=== PATIENT | male | born 1945 | race Caucasian/White ===

== ENCOUNTER 2017-11-14 19:42 | Inpatient (IN) | payer OTHER ==
[~2017-11-14] VITALS: Ht 152.4 cm; Wt 87.5 kg
[~2017-11-14 19:42] MED LIST: ACETAMINOPHEN325 M1 PO; ADULT LOW DOSE81 MG PO; ASPIRIN EC325 M1 PO; ASPIRIN EC325 MG PO; ASPIRIN325 PO; ASPIRIN81 M2 PO; CARVEDILOL3.125 MG PO; CARVEDILOL6.25 MG PO; COREG3.125 MG PO; COZAAR100 MG PO; CYCLOBENZAPRINE10 MG PO; DIOVAN160 MG PO; DYAZIDE 37.5-21 EACH PO; EFFIENT10 MG PO; FLOMAX0.4 MG PO; GLUCOSAMINE-CH1 EA37 PO; GLUCOSAMINE1000 MG PO; LOSARTAN POTAS100 MG PO; MAXZIDE-25 MG1 EACH; MAXZIDE-25 MG1 EACH PO; NITROGLYCERIN0.4 MG SUBLING; NITROQUICK0.4 MG SUBLING; NITROSTAT0.4 MG SUBLING; OMEPRAZOLE 20 M20 M1 PO; PLAVIX 75 MG TA75 M1 PO; PLAVIX 75 MG TA75 MG PO; PROSCAR 5MG TABL5 MG PO; SIMVASTATIN20 MG PO; TAMSULOSIN HCL0.4 M1 PO; TRAMADOL 50 MG50 MG PO; TRIAMTERENE/HCT1 CA1 PO; TRIPLE FLEX CA1 EACH PO; VITAMIN B-12500 MCG PO; ZOCOR40 MG PO; ZOCOR80 MG PO
[2017-11-14] MEDS ORDERED: ASPIRIN325 PO (20:04)
[2017-11-14 20:29] LABS: ABSOLUTE BASOPHILS 0.1 thou/uL (0.0-0.2); ABSOLUTE EOSINOPHILS 0.3 thou/uL (0.0-0.7); ABSOLUTE LYMPHOCYTES 1.4 thou/uL (0.8-5.3); ABSOLUTE MONOCYTES 0.9 thou/uL (0.0-1.2); ABSOLUTE NEUTROPHILS 4.6 thou/uL (1.6-8.1); BASOPHILS 1.4 %; EOSINOPHILS 4.7 %; HEMATOCRIT 37.4 % (42.0-52.0); HEMOGLOBIN 12.8 gm/dL (14.0-18.0); LYMPHOCYTES 19.7 %; MCH 32.8 pg (26.0-34.0); MCHC 34.2 g/dL (28.0-37.0); MONOCYTES 11.9 %; NUCLEATED RBCS 0 /100WBC; PLATELET COUNT* 144 thou/uL (150-400); POLYS 62.3 %; RDW-CV 13.8 % (10.5-14.5); WBC 7.4 thou/uL (4.0-11.0)
[2017-11-14 20:37] LABS: ANION GAP 7 mmol/L (7-16); BUN 23 mg/dL (7-18); CALCIUM 8.4 mg/dL (8.5-10.1); CHLORIDE 104 mmol/L (98-107); CO2 28 mmol/L (21-32); CREATININE 1.4 mg/dL (0.6-1.3); GLUCOSE 156 mg/dL (70-99); POTASSIUM 3.7 mmol/L (3.5-5.1); SODIUM 139 mmol/L (136-145)
[2017-11-14 20:39] LABS: INR 1.1; PROTIME 10.6 Seconds (9.20-11.50)
[2017-11-14 20:48] LABS: ALBUMIN 3.2 g/dL (3.4-5.0); ALKALINE PHOSPHATASE 104 U/L (46-116); LIPASE 92 U/L (73-393); NT-PRO BRAIN NAT PEPTIDE 61 pg/mL (<300); SGOT 19 U/L (15-37); SGPT 21 U/L (30-65); TOTAL BILIRUBIN 0.2 mg/dL (<0.1-1.0); TOTAL PROTEIN 6.4 g/dL (6.4-8.2); TROPONIN-I LEVEL <0.06 ng/mL (<0.06)
[2017-11-14 23:10] VITALS: BP 100/61
[2017-11-14 23:24] VITALS: BP 114/65
[2017-11-15] VITALS (16 sets, daily range): BP systolic 82–128; BP diastolic 45–73
--- NOTE | 2017-11-15 00:15 | NUR ---
ASSUMED CARE OF PT FROM THE ER AT 2315. PT IS ALERT AND ORIENTED. VSS. PT REPORTS SOME SHARP PAIN IN HIS CHEST. PT RATES AT A 2. PT DENIES THE NEED FOR PAIN MEDICINE. PT IS IN SINUS RYTHM ON THE TELEMETRY. PT IS CURRENTLY NPO FOR CARDIOLOGY. PT IS IN SINUS BRADYCARDIA. PT IS RESTING COMFORTABLY IN BED. RESPIRATIONS ARE EVEN AND NONLABORED. WILL CONTINUE TO MONITOR PT.
[2017-11-15 05:09] LABS: HEMATOCRIT 34.8 % (42.0-52.0); HEMOGLOBIN 11.9 gm/dL (14.0-18.0); MCH 33.1 pg (26.0-34.0); MCHC 34.3 g/dL (28.0-37.0); MCV 96.6 fL (80.0-100.0); MPV 9.6 fl. (7.2-11.1); RBC 3.6 mil/uL (4.50-6.00); RDW-CV 13.7 % (10.5-14.5); WBC 6.8 thou/uL (4.0-11.0)
[2017-11-15 05:27] LABS: ALBUMIN 2.7 g/dL (3.4-5.0); CALCIUM 7.8 mg/dL (8.5-10.1); CREATININE 1.2 mg/dL (0.6-1.3); POTASSIUM 3.6 mmol/L (3.5-5.1); TOTAL BILIRUBIN 0.2 mg/dL (<0.1-1.0); TOTAL PROTEIN 5.2 g/dL (6.4-8.2)
--- NOTE | 2017-11-15 08:36 | NUR ---
ASSUMED PT. CARE AND RECEIVED REPORT AT 0730. PT A/OX4, VSS, MONITOR ON TRACING SB. PT. REPORTS CP 5/10, WORSE WITH ACTIVITY. FULL ASSESSMENT COMPLETED REFER TO CHARTING. PT. UP IN CHAIR, AT BEDSIDE. NPO FOR CARDIOLOGY. WILL CONTINUE WITH PLAN OF CARE.
--- NOTE | 2017-11-15 12:30 | NUR ---
PT. CONTINUES TO COMPLAIN OF CP ON/OFF THROUGH OUT THE MORNING. EKG OBTAINED WITH NO NEW FINDINGS. DISCUSSED WITH TELMA WALKER CV, NEW ORDERS OBTAINED TO DO PO NITRO AND 1/[address] GALLEGOS MADE AWARE AND INTO SEE PT. PLAN FOR CARDIAC CATH MADE. IVF'S STARTED AT 125ML/HR. PER ORDERS. PT. STATED HE FELT "WEIRD" WITH AFTER NITRO AND NITRO PASTE PLACE, PASTE REMOVED. PT. BECAME TEARFUL AND VERY ANXIOUS ABOUT PROCEDURE. ONETIME ORDER FOR IV ATIVAN RECEIVED. PT. AT BEDSIDE THROUGH OUT.
--- NOTE | 2017-11-15 14:44 | NUR ---
PT. RETURNED FROM CARDIAC CATH. RIGHT GROIN SOFT WITH C/D/I DRESSING. PT. REMAINS SLEEPY FROM ATIVAN. BP SOFT AT 90'S/60'S CURRENTLY. PT. INSTRUCTED ON IMMOBILIZATION. WILL CONTINUE TO MONITOR.
--- NOTE | 2017-11-15 18:55 | NUR ---
PT. UP POST CATH, TOLERATING WELL. NO S/S OF BLEEDING NOTED DURING RECOVERY. BP UP TO 120'S/60'S. PT. DENIES CURRENT CP. PT. AT BEDSIDE. HOURLY ROUNDING COMPLETED THROUGH OUT THE DAY FOR PT. SAFETY.
[2017-11-16] VITALS: BP 121/56
--- NOTE | 2017-11-16 02:26 | NUR ---
ASSUMED CARE OF PT AT 1900. PT IS ALERT AND ORIENTED. VSS. PERRLA. NO COMPLAINTS OF PAIN. NO SIGNS OR SYMPTOMS OF BLEEDING IN CATH SITE. PT IS IN SINUS RYHTM ON THE TELEMETRY. PT IS RESTING COMFORTABLY IN BED. RESPIRATIONS ARE EVEN AND NONLABORED. WILL CONTINUE TO MONITOR PT.
[2017-11-16 04:00] VITALS: BP 112/55
[2017-11-16 04:55] LABS: HEMATOCRIT 37.2 % (42.0-52.0); HEMOGLOBIN 12.6 gm/dL (14.0-18.0); MCH 32.7 pg (26.0-34.0); MCHC 33.8 g/dL (28.0-37.0); MCV 96.8 fL (80.0-100.0); MPV 9.5 fl. (7.2-11.1); RBC 3.84 mil/uL (4.50-6.00); RDW-CV 13.8 % (10.5-14.5); WBC 8.1 thou/uL (4.0-11.0)
[2017-11-16 05:15] LABS: ALBUMIN 2.7 g/dL (3.4-5.0); ALKALINE PHOSPHATASE 70 U/L (46-116); ANION GAP 10 mmol/L (7-16); BUN 17 mg/dL (7-18); CALCIUM 8.6 mg/dL (8.5-10.1); CHLORIDE 105 mmol/L (98-107); CHOLESTEROL 130 mg/dL (<200); CK-MB MASS 1.7 ng/mL (<0.5-3.6); CO2 25 mmol/L (21-32); CREATININE 1.1 mg/dL (0.6-1.3); GLUCOSE 116 mg/dL (70-99); HDL CHOLESTEROL 49 mg/dL (>40); LDL CHOLESTEROL 68 mg/dL (<100); POTASSIUM 3.5 mmol/L (3.5-5.1); SGOT 18 U/L (15-37); SGPT 14 U/L (30-65); SODIUM 140 mmol/L (136-145); TC:HDL 2.7 Ratio (Not establshd); TOTAL BILIRUBIN 0.5 mg/dL (<0.1-1.0); TOTAL PROTEIN 5.7 g/dL (6.4-8.2); TRIGLYCERIDE 67 mg/dL (<150); TROPONIN-I LEVEL 0.17 ng/mL (<0.06); VLDL 13 mg/dL (<40)
[2017-11-16 05:22] LABS: SERUM ASSESSMENT CLEAR
[2017-11-16 08:00] VITALS: BP 133/84
[2017-11-16 09:08] VITALS: BP 112/55
[2017-11-16] MEDS ORDERED: BRILINTA90 MG PO (09:08)
[2017-11-16] MEDS ORDERED: ASPIR 8181 MG PO (09:17)
--- NOTE | 2017-11-16 12:20 | NUR ---
ORDER RECEIVED TO DISCHARGE TRUNG HOME TO SELF CARE. MED REC, MEDICATION EDUCAITON, STROKE EDUCATION, AND NEED FOR FOLLOW UP CARE WITH CARDIOLOGY COVERED AND STATED UNDERSTOOD BY PATIENT. IV AND TELEMETRY PACK REMOVED. PAITNET EDUCATED ON GROIN SITE CARE AND LIMITATIONS ON LIFTING AND EXERTION. PATIENT DENIES PAIN AT TIME OF DISCHARGE. PATIENT CHOSE TO AMBULATE WITH PCT TO AWAITING CAR WITH PRESENT. DC TIME OF 11:35.
--- NOTE | 2017-11-17 08:29 | CARD ---
[address] [address] CARDIAC CATH REPORT Name: JIMMYCLARI Room: [address] IN [facility]#: [id number] Admission: 11/14/17 Attend Phys: Connor Josue MD Discharge: 11/16/17 Date of : 47 Report #: [id number] THIS REPORT FOR: //name// APPROVED REPORT Study performed: 11/15/2017 12:38:49 Patient Details Patient Status: In-Patient Room #: 203 The patient is a 72 year-old male Event Personnel Anuel Main Nurse Ldr, Lara Priest Office Services Representative, Miguelito Rodriguez (R) Monitor, Joe Deras Scrub Procedures Performed DEMARIO Place w/wo Plasty Single RCA Indication Dyspnea, Unstable angina Risk Factors Hypercholesterolemia, Coronary Artery DiseaseHypertension Previous Procedures/Diagnoses Previous PCI Procedure Narrative A 6fr Ultimum Sheath sheath was inserted into the Right Femoral Artery. Coronary angiography was performed using coronary diagnostic catheters. The right coronary system was accessed and visualized with a JR4 catheter. The left coronary system was accessed and visualized with a JL4 catheter. The left ventricle was accessed and visualized with a Angled Pigtail catheter. Closure device was deployed with a Fr MynxGrip 6/7F. The patient tolerated the procedure well and there were no complications associated with the procedure. Intraoperative Conscious Sedation No Sedation Given Fluoro Time: 9.8 minutes Dose: DAP 17474 cGycm2 1644 mGy Contrast Type and Amount: Visipaque 200 ml Coronary Angiography [address] [address] CARDIAC CATH REPORT Name: CLARI MARQUEZ Room: [address]#: [id number] Admission: 11/14/17 Attend Phys: Connor Josue MD Discharge: 11/16/17 Date of : 47 Report #: [id number] The patient's coronary anatomy is right dominant. Diagnostic Cath Left Main Large-caliber vessel, with no flow-limiting lesions. LAD There is a stent in the proximal/mid segment, widely patent. Just prior to the stent, there is mild diffuse disease. The mid and distal segments of the LAD have no flow-limiting lesions. Diagonal 1 Small-caliber vessel with a total occlusion at the ostium, filled via collateral circulation. Unchanged from prior procedures. Circumflex Patent vessel, supplies 2 obtuse marginal arteries. OM1 There is a stent in the proximal segment, patent with no flow-limiting lesions. OM2 There is a stent in the proximal segment, patent with no flow-limiting lesions. Right Coronary Dominant vessel with multiple overlapping stents in the proximal/mid segment of the RCA. Within the mid segment of the stented area, there is a focal, severe restenotic lesion, at least 90%. R PDA Patent vessel, no flow-limiting lesions. Left Ventriculography The left ventricle is normal in size with decreased contractility. The left ventricular ejection fraction is estimated to be 45%. Left ventricular wall motion abnormalities are present. Hypokinesis of the inferior segment. IVUS Anticoagulation was achieved with . Angiomax Intravascular Ultrasound was performed on the mid right coronary artery vessel. Fractional Flow [place] was performed on the 90 vessel. A 3 Guide Catheter was used to engage the 6F JR 4.0 ostium. A IG: Luge Wire 180 was used. IVUS Findings NC Trek RX 3.0 X 15 Hemodynamics The aortic pressure is 121/61 mmHg with a mean of 85 mmHg. The left ventricular pressure is 120/3 mmHg with a mean of mmHg. The left ventricular end diastolic pressure is 15 mmHg. PCI Technique Lesion Anticoagulation was achieved with Angiomax. [place] [address] CARDIAC CATH REPORT Name: CLARI MARQUEZ Room: [address]#: [id number] Admission: 11/14/17 Attend Phys: Connor Josue MD Discharge: 11/16/17 Date of : 47 Report #: [id number] with Angiomax IV 13.5 mlTicagrelor PO 180 mg. Percutaneous coronary intervention was performed on the mid right coronary arterymid right coronary artery. The lesion stenosis prior to intervention was 90% with DONAVAN 3 flow. A 6F JR 4.0 Guide Catheter was used to engage the ostium. A IG: Luge Wire 180 Interventional Guidewire was used to cross the lesion. BALLOON DILATION A Balloon catheter NC Trek RX 2.75X15 was inserted and inflated up to 18.00atm for 33seconds. Additional Inflation: 18.00atm for 19seconds. PCI Technique Lesion Anticoagulation was achieved with Angiomax. Patient was preloaded with Brillinta. Percutaneous coronary intervention was performed on the mid right coronary artery. The lesion stenosis prior to intervention was 90% with DONAVAN 3 flow. A 6F JR 4.0 Guide Catheter was used to engage the ostium. A IG: Luge Wire 180 Interventional Guidewire was used to cross the lesion. BALLOON DILATION A Balloon catheter NC Trek RX 3.0 X 15 was inserted and inflated up to 20.00atm for 30seconds. STENT DEPLOYMENT A drug-eluting stent Resolute RX 3X15 was inserted and inflated up to 14.00atm for 32seconds. POST STENT DEPLOYMENT BALLOON DILATION A Balloon catheter NC Trek RX 3.25 X 12 was inserted and inflated up to 20.00atm for 34seconds. Additional Inflation: 20.00atm for 27seconds. Final angiography reveals 10 % stenosis with DONAVAN 3 flow. Conclusion 1. Successful coronary angioplasty involving placement of a drug-eluting stent and high pressure dilatation with noncompliant balloons in the severe restenotic lesion in the RCA. 2. Patent stents in the [place] [address] CARDIAC CATH REPORT Name: CLARI MARQUEZ Room: [address] IN .R.#: [id number] Admission: 11/14/17 Attend Phys: Connor Josue MD Discharge: 11/16/17 Date of : 47 Report #: [id number] 3. Mild segmental LV dysfunction. 4. Recommend dual antiplatelet therapy. <ELECTRONICALLY SIGNED> By: Anuel Main MD 11/17/17828 8 8Anuel Main MD /INF
--- NOTE | 2017-11-17 11:29 | EKG ---
[place] [address] ELECTROCARDIOGRAM REPORT Name: CLARI MARQUEZ Room: [address] IN [facility]#: [id number] Admission: 11/14/17 Attend Phys: Connor Josue MD Discharge: 11/16/17 Date of : 47 Report #: [id number] THIS REPORT FOR: //name// [facility] ED Test Date: 2017-11-14 Test Time: 19:49:53 Pat Name: CLARI MARQUEZ Department: Room: Gender: Senior Controls Technician: MILY : 1945 Requested By: Carolina Blankenship Order Number: [id number] : Juan Carlos Finch Measurements Intervals [place] Rate: 58 P: 20 GA: 168 QRS: 20 QRSD: 97 T: 20 QT: 411 QTc: 404 Interpretive Statements Sinus rhythm Inferior infarct, old possible Compared to ECG 01/08/2017 08:03:22 No significant change Electronically Signed On 11-17-2017 11:29:34 CDT by Juan Carlos Finch [email or web address] <ELECTRONICALLY SIGNED> By: Juan Carlos Finch MD, [facility] 11/17/17 1129 48 48 Juan Carlos Finch MD, [facility] /EPI
--- NOTE | 2017-11-17 18:37 | EKG ---
[place] [address] ELECTROCARDIOGRAM REPORT Name: JIMMYCLARI Reynolds Room: [address] DIS IN M.R.#: [id number] Admission: 11/14/17 Attend Phys: Connor Josue MD Discharge: 11/16/17 Date of : 47 Report #: [id number] THIS REPORT FOR: //name// [facility] Test Date: 2017-11-15 Test Time: 11:40:25 Pat Name: CLARI MARQUEZ Department: Room: [address] Gender: M Clam Grower: : 1945 Requested By: Anuel Main Order Number: [id number] Reading MD: Juan Carlos Finch Measurements Intervals [place] Rate: 51 P: 14 WA: 170 QRS: 13 QRSD: 98 T: 5 QT: 432 QTc: 398 Interpretive Statements Sinus rhythm Inferior infarct, old Baseline wander in lead(s) V6 Compared to ECG 01/08/2017 08:03:22 Myocardial infarct finding now present Electronically Signed On 11-17-2017 18:36:52 CDT by Juan Carlos Finch [email or web address] <ELECTRONICALLY SIGNED> By: Juan Carlos Finch MD, [facility] 11/17/17 1836 1140 1140 Juan Carlos Finch MD, [facility] /EPI
--- NOTE | 2017-11-26 16:12 | CON ---
[address] [address] CONSULTATION Name: CLARI MARQUEZ Room: [address] IN M.R.#: [id number] Admission: 11/14/17 Attend Phys: Connor Josue MD Discharge: 11/16/17 Date of : 47 Report #: [id number] THIS REPORT FOR: //name// CC: Connor Josue [facility] physician/PCP CARDIOLOGY CONSULTATION HISTORY OF PRESENT ILLNESS: I was asked by Dr. Josue to see this 72-year-old white male in Cardiology consultation for evaluation and treatment of chest pain. This man has known coronary artery disease and has had multiple coronary stents. He had stents in his LAD in September of last year by Dr. Finch and then again in his right coronary in 12/2016. He had stents at in 2004 and 2007. He had an [place] in 11/2007. He began having chest pain yesterday at about 11:30 a.m. that came and went. It was mild and sort of twinges, he said at first and it progressed until it became more constant at 05:00 to 06:00 p.m. He says the pain is like his previous pain. It is in the left chest and there is a pressure sensation. He has pain radiating into his left arm and into his axilla and up into his neck. Pain is a 7-8 on a scale of 10. It has been almost constantly there since 07:00 p.m., but it waxes and wanes. Nitroglycerin seems to help it and he says it never completely goes away, but goes down to around a one, but then goes back to 7 or 8 on a scale of 10 when the nitro worn off. He has not had any morphine. He says this pain is very much like his previous coronary pain that he had before getting stents. He does have chronic dyspnea on exertion and some edema at times. He does not have orthopnea or PND. He is not known to have heart failure. His coronary risk factors include a past history of smoking. He quit in the 1960s. He does have hypercholesterolemia and high blood pressure. He has not had diabetes. He does have a family history of coronary heart disease in his siblings. He has not had renal disease. He does have mild carotid disease bilaterally. He has not had claudication or peripheral vascular disease or open or non-healing wounds. Additionally, he has had rotator cuff surgery, back surgery, knee surgery, carpal tunnel surgery as well as the stents. ALLERGIES: HE IS ALLERGIC TO LISINOPRIL. MEDICATIONS: His home medicines include aspirin 325 mg daily, Proscar 5 mg daily, losartan 50 mg daily, p.r.n. nitroglycerin, omeprazole 20 mg daily, simvastatin 80 mg daily, Flomax 0.4 mg daily and triamterene/hydrochlorothiazide 37.5/25 one tablet daily. He is also taking Plavix 75 mg daily. He was on Brilinta until July when he was switched to Plavix. 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 Otherwise, his review of systems is negative for some 40 complaints in 14 different system categories, including central nervous system, general, respiratory, cardiovascular, endocrine, gastrointestinal, genitourinary, [address] [address] CONSULTATION Name: CLARI MARQUEZ Room: [address] IN [facility]#: [id number] Admission: 11/14/17 Attend Phys: Connor Josue MD Discharge: 11/16/17 Date of : 47 Report #: [id number] hematologic, lymphatic, allergic, immunologic, psychiatric, musculoskeletal, skin, eyes, ears, nose, mouth and throat. Please see review of system form for details and negatives in review of systems. SOCIAL HISTORY: He is , retired. 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 He does not smoke, drink or use illegal drugs. FAMILY HISTORY: Remarkable for his sisters having bypass graft surgery and a brother had a heart attack. There has been no family history of sudden . PHYSICAL EXAMINATION: GENERAL: He presents as a well-developed, well-nourished white male in no acute distress. VITAL SIGNS: Pulse was 60 and regular, blood pressure is 114/65, respirations were 17 and regular and temperature is 97.8. HEENT: Her head is atraumatic. Eyes are clear. Mucous membranes are moist. NECK: Supple. There is no jugular venous distention or hepatojugular reflux. Thyroid is not enlarged. There is no adenopathy. SKIN: Warm and dry. LUNGS: Clear to auscultation and percussion. HEART: Examination of the heart reveals normal first and second heart sound. There is soft S4. There is no S3. There are no murmurs, rubs, thrills, heaves or gallops. PMI is nondisplaced. ABDOMEN: Soft, flat and nontender. No palpable masses, no organomegaly. EXTREMITIES: Examination of the extremities reveal no cyanosis, clubbing or edema. NEUROLOGIC: The patient mentates normally, talks normally and moves all extremities normally. LABORATORY DATA: His EKG when he was admitted showed sinus bradycardia. The heart rate was 58. There were small Q-waves in V1 and V2 and the computer read it probable anteroseptal infarct that was old. The computer also read of an old inferior infarct. There is a neuro deep Q-wave in 3 and a very small minimal Q-wave in aVF; I am not sure he can call that an inferior infarct. His EKG today demonstrated a heart rate of 51 and normal sinus rhythm. Again, there was very small narrow Q-wave in 3 with really a nub-in of a Q-wave in 2 as well as a nub-in in the VF. Again, the computer called an inferior infarct; however, I am not sure this represents a true inferior infarct. There was a small R-wave in V1 and a more prominent R-wave in V2. I do not think this man has had a prior septal infarct. Initial troponin was normal. Apparently, a subsequent troponin was not drawn; one has been ordered stat. IMPRESSION: 1. Chest pain that is very suspicious for unstable angina. 2. Coronary artery disease. 3. Status post [place] [address] CONSULTATION Name: MARQUEZCLARI Room: [address] IN .R.#: [id number] Admission: 11/14/17 Attend Phys: Connor Josue MD Discharge: 11/16/17 Date of : 47 Report #: [id number] 4. Hypercholesterolemia. 5. Essential hypertension. 6. Carotid stenosis. RECOMMENDATIONS: This man should have cardiac catheterization today and that will be done. Dr. Main is on his way now to the hospital to do the procedure. Thank you very much for asking me to see the patient. If you have any questions, please feel free to contact me. <ELECTRONICALLY SIGNED> By: Ale Saleem MD, FACC 11/26/17 1612 1239 [id number]. Tremaine Saleem MD, FACC /nt
== END 2017-11-16 11:27 | disposition home or self-care (01) | DRG 247 ==
LOC: M.ERS 19:42 → M.TBA-ER 22:40 → M.2W 22:51
PROVIDERS: Emergency Medicine; Internal Medicine Cardiovascular Disease; ADMIT Internal Medicine
DX: I25.110 Atherosclerotic heart disease of native coronary artery with unstable angina pectoris (principal); I50.32 Chronic diastolic (congestive) heart failure; N17.9 Acute kidney failure, unspecified; E44.1 Mild protein-calorie malnutrition; I10 Essential (primary) hypertension; E78.5 Hyperlipidemia, unspecified; I65.29 Occlusion and stenosis of unspecified carotid artery; E78.00 Pure hypercholesterolemia, unspecified; M19.90 Unspecified osteoarthritis, unspecified site; Z88.8 Allergy status to other drugs, medicaments and biological substances; Z95.5 Presence of coronary angioplasty implant and graft; I25.2 Old myocardial infarction; Z98.890 Other specified postprocedural states; Z79.82 Long term (current) use of aspirin; Z79.899 Other long term (current) drug therapy

== ENCOUNTER 2018-05-22 11:57 | Inpatient (IN) | payer OTHER ==
[2018-05-22] VITALS (12 sets, daily range): BP systolic 95–133; BP diastolic 31–78
[~2018-05-22] VITALS: Ht 165.1 cm; Wt 83.9 kg
[~2018-05-22 11:57] MED LIST changes: +ASPIR 8181 MG PO; +BRILINTA90 MG PO
[2018-05-22] MEDS ORDERED: EFFIENT10 MG PO (12:04)
[2018-05-22 12:21] LABS: ABSOLUTE BASOPHILS 0.1 thou/uL (0.0-0.2); ABSOLUTE EOSINOPHILS 0.3 thou/uL (0.0-0.7); ABSOLUTE LYMPHOCYTES 1.4 thou/uL (0.8-5.3); ABSOLUTE MONOCYTES 0.8 thou/uL (0.0-1.2); ABSOLUTE NEUTROPHILS 5.1 thou/uL (1.6-8.1); BASOPHILS 0.8 %; EOSINOPHILS 4.3 %; HEMOGLOBIN 13.4 gm/dL (14.0-18.0); LYMPHOCYTES 18.3 %; MCH 32.3 pg (26.0-34.0); MCHC 33.5 g/dL (28.0-37.0); MCV 96.3 fL (80.0-100.0); NUCLEATED RBCS 0 /100WBC; PLATELET COUNT* 169 thou/uL (150-400); POLYS 65.6 %; RBC 4.16 mil/uL (4.50-6.00); RDW-CV 14.4 % (10.5-14.5); WBC 7.7 thou/uL (4.0-11.0)
[2018-05-22 12:33] LABS: ANION GAP 8 mmol/L (7-16); BUN 19 mg/dL (7-18); CALCIUM 8.9 mg/dL (8.5-10.1); CHLORIDE 103 mmol/L (98-107); CO2 30 mmol/L (21-32); CREATININE 1.1 mg/dL (0.6-1.3); GLUCOSE 102 mg/dL (70-99); POTASSIUM 3.9 mmol/L (3.5-5.1); SODIUM 141 mmol/L (136-145)
[2018-05-22 12:51] LABS: APTT 29.4 Seconds (25.0-31.3); PROTIME 10.7 Seconds (9.20-11.50)
[2018-05-22 12:52] LABS: ALBUMIN 3.3 g/dL (3.4-5.0); ALKALINE PHOSPHATASE 99 U/L (46-116); CK-MB MASS 2.1 ng/mL (<0.5-3.6); LIPASE 83 U/L (73-393); NT-PRO BRAIN NAT PEPTIDE 157 pg/mL (<300); SGOT 19 U/L (15-37); SGPT 18 U/L (30-65); TOTAL BILIRUBIN 0.3 mg/dL (<0.1-1.0); TOTAL PROTEIN 7.4 g/dL (6.4-8.2); TROPONIN-I LEVEL <0.06 ng/mL (<0.06)
[2018-05-22] MEDS ORDERED: KEFLEX500 M1 PO (14:31)
[2018-05-23] VITALS (14 sets, daily range): BP systolic 92–139; BP diastolic 53–64
[2018-05-23 05:27] LABS: HEMATOCRIT 37.1 % (42.0-52.0); HEMOGLOBIN 12.8 gm/dL (14.0-18.0); MCH 33.1 pg (26.0-34.0); MCHC 34.4 g/dL (28.0-37.0); MCV 96.4 fL (80.0-100.0); MPV 9.6 fl. (7.2-11.1); RBC 3.85 mil/uL (4.50-6.00); WBC 6.5 thou/uL (4.0-11.0)
[2018-05-23 05:37] LABS: ALBUMIN 2.5 g/dL (3.4-5.0); ALKALINE PHOSPHATASE 78 U/L (46-116); ANION GAP 9 mmol/L (7-16); BUN 19 mg/dL (7-18); CHLORIDE 105 mmol/L (98-107); CO2 26 mmol/L (21-32); CREATININE 1.1 mg/dL (0.6-1.3); GLUCOSE 117 mg/dL (70-99); HDL CHOLESTEROL 47 mg/dL (>40); POTASSIUM 3.9 mmol/L (3.5-5.1); SGOT 13 U/L (15-37); SGPT 14 U/L (30-65); SODIUM 140 mmol/L (136-145); TOTAL BILIRUBIN 0.4 mg/dL (<0.1-1.0); TOTAL PROTEIN 5.3 g/dL (6.4-8.2); TRIGLYCERIDE 59 mg/dL (<150); TROPONIN-I LEVEL 0.12 ng/mL (<0.06); VLDL 12 mg/dL (<40)
[2018-05-23 06:06] LABS: CHOLESTEROL 109 mg/dL (<200); LDL CHOLESTEROL 51 mg/dL (<100); TC:HDL 2.3 Ratio (Not establshd)
[2018-05-23 06:08] LABS: SERUM ASSESSMENT Clear
--- NOTE | 2018-05-23 11:05 | CARD ---
[address] [address] CARDIAC CATH REPORT Name: JU MARQUEZIFFORD Rodolfo Room: [address] IN ..#: [id number] Admission: 05/22/18 Attend Phys: Juana Conner MD Discharge: Date of : 46 Report #: [id number] THIS REPORT FOR: //name// APPROVED REPORT Study performed: 05/22/2018 16:21:31 Patient Details The patient is a 73 year-old male Event Personnel Juan Carlos Finch Cadmium Burner, Randi Shepherd RN Financial Services Assistant, Birgit Tillman RN Financial Services Assistant, Alexandra Amado RTR Monitor, Miguelito Rodriguez (R) Scrub Procedures Performed Art Access - R femoral artery* Left Heart Cath w/or w/o Coronaries LHC DEMARIO Place w/wo Plasty Single LAD DEMARIO Revasc Chronic Ttl Occl Single RCA C9607 CTOREVSING Hemostasis w/ Angioseal Indication Unstable angina Risk Factors Hypercholesterolemia, Hypertension Previous Procedures/Diagnoses Previous PCI, Previous FL Admission/Lab Medications/Medications given during procedure Aspirin, Heparin Unfract. Procedure Narrative The patient was brought urgently to the Cardiac Catheterization Laboratory and was prepped and draped in a sterile manner. The right femoral was infiltrated with 2% Lidocaine subcutaneous anesthesia. A Navajo 6 FR sheath was inserted into the right femoral artery. Coronary angiography was performed using coronary diagnostic catheters. The right coronary system was accessed and visualized with a Diagnostic 6Fr JR4 catheter. The left coronary system was accessed and visualized with a Diagnostic 6Fr JL4 catheter. The left ventricle was accessed and visualized with a Diagnostic 6Fr straight pigtail catheter. Left ventricular/Aortic Valve gradient assessed via catheter pullback. Pre-demployment femoral [place]ogram [place] [address] CARDIAC CATH REPORT Name: CLARI MARQUEZ Rodolfo Room: [address]#: [id number] Admission: 05/22/18 Attend Phys: Juana Conner MD Discharge: Date of : 46 Report #: [id number] Closure device was deployed with a Fr Angioseal STS 6Fr. Hemostasis was obtained with manual pressure following sheath removal without any complications. The patient tolerated the procedure well and there were no complications associated with the procedure. There was no hematoma. Intraoperative Conscious Sedation Sedation start time: 1701 Case end Time: 1900 Fentanyl 75 mcg Versed 5 mg Fluoro Time: 49.0 minutes Dose: DAP [id number] cGycm2 126 mGy Contrast Type and Amount: Visipaque 650 ml Coronary Angiography The patient's coronary anatomy is right dominant. Diagnostic Cath Left Main 0% narrowing LAD 80% proximal stenosis with 30% mid vessel narrowing Circumflex 30% proximal narrowing with widely patent first marginal stent Right Coronary 100% chronic total occlusion of the proximal right coronary artery with faint ipzh-mt-lzocs collaterals filling the distal right coronary artery Left Ventriculography Left Ventriculography was not performed. Hemodynamics The aortic pressure is mmHg with a mean of 93 mmHg. The left ventricular pressure is 121/2 mmHg with a mean of mmHg. The left ventricular end diastolic pressure is 11 mmHg. There was no gradient across the aortic valve upon pullback. PCI Technique Lesion Anticoagulation was achieved with Heparin. Percutaneous coronary intervention was performed on the proximalmid right coronary artery total occlusion. The lesion stenosis prior to intervention was 100% with DONAVAN 0 flow. A 6F JR 4.0 Guide Catheter was used to engage the ostium. A I BMW 190cm Interventional Guidewire was used to cross the lesion[place] [address] CARDIAC CATH REPORT Name: CLARI MARQUEZ Rodolfo Room: [address]#: [id number] Admission: 05/22/18 Attend Phys: Juana Conner MD Discharge: Date of : 46 Report #: [id number] A Balloon catheter Mini Trek 0TW 1.2 X 12 was inserted and inflated up to 14.00atm for 6seconds. Additional Inflation: 14.00atm for 9seconds. Additional Inflation: 14.00atm for 8seconds. STENT DEPLOYMENT A drug-eluting stent Neel RX Stent 3.0X30mm was inserted and inflated up to 16:00atm for 6seconds. Additional Inflation: 18:00atm for 11seconds. Additional Inflation: 18:00atm for 10seconds. POST STENT DEPLOYMENT BALLOON DILATION A Balloon catheter NC Trek RX 3.25 X 12 was inserted and inflated up to 16.00atm for 10seconds. Additional Inflation: 16.00atm for 9seconds. Additional Inflation: 16.00atm for 9seconds. Final angiography reveals 10 % stenosis with DONAVAN 3 flow. COMMENTS I was able to traverse the chronic total occlusion of the proximal right coronary artery with a Fielder XT wire and a fine cross support catheter. I then was able to dilate the lesion with 1.5 x 12.0 2.0 x 12 and 3.0 x 12 trek balloons prior to placing sequential drug-eluting stents. BALLOON DILATION A Balloon catheter was inserted and inflated up to 10.00atm for 7seconds. Additional Inflation: 10.00atm for 4seconds. Additional Inflation: 10.00atm for 7seconds. Stent Deployment A drug-eluting stent [place] RX Stent 3.0X26mm was inserted and inflated up to 18:00atm for 15seconds. Additional Inflation: 20:00atm for 10seconds. PCI Technique Lesion Percutaneous coronary intervention was performed on the proximal right coronary artery. BALLOON DILATION A Balloon catheter Trek RX 3.0 X 12 was inserted and inflated up to 12.00atm for 8seconds. Additional Inflation: 14.00atm for 12seconds. Additional Inflation: 14.00atm for 7seconds. STENT DEPLOYMENT A drug-eluting stent [place] RX Stent 3.0X12mm was inserted and inflated up to 18:00atm for 20seconds. Additional Inflation: 20:00atm for 6seconds. Additional Inflation: 18:00atm for 7seconds. [address] [address] CARDIAC CATH REPORT Name: CLARI MARQUEZ Room: [address]#: [id number] Admission: 05/22/18 Attend Phys: Juana Conner MD Discharge: Date of : 46 Report #: [id number] PCI Technique Lesion Percutaneous coronary intervention was performed on the proximal right coronary artery. BALLOON DILATION A Balloon catheter NC Trek RX 3.0 X 12 was inserted and inflated up to 18.00atm for 15seconds. Additional Inflation: 18:00atm for 3seconds. Additional Inflation: 20:00atm for 5seconds. PCI Technique Lesion 4 Percutaneous Coronary Intervention was performed on the proximal left anterior descending artery segment. Percutaneous coronary intervention was performed on the proximal LAD. The lesion stenosis prior to intervention was 80% with DONAVAN 3 flow. A 6F XB LAD 3.5 Guide Catheter was used to engage the ostium. A BMW 190cm Interventional Guidewire was used to cross the lesion. Balloon Dilation A Balloon catheter NC Trek RX 3.0 X 12 was inserted and inflated up to 14.00atm for 7seconds. Stent Deployment A drug-eluting stent Neel RX Stent 3.0X15mm was inserted and inflated up to 14.00atm for 12seconds. Additional Inflation: 16.00atm for 9seconds. Additional Inflation: 17.00atm for 9seconds. Final angiography reveals 0 % stenosis with DONAVAN 3 flow. Conclusion #1 severe coronary artery disease characterized by following: A 80% proximal LAD stenosis B 30% proximal circumflex narrowing with widely patent first marginal stent C large dominant right coronary artery with 100% chronic total occlusion in the proximal portion with faint ydgo-ib-clzal collaterals filling the distal right coronary artery #2 normal left-sided hemodynamics study #3 successful percutaneous coronary intervention with recanalization of the chronic total occlusion of the proximal[place] [address] CARDIAC CATH REPORT Name: MARQUEZCLARI Room: [address] IN .R.#: [id number] Admission: 05/22/18 Attend Phys: Juana Conner MD Discharge: Date of : 46 Report #: [id number] artery with 3 drug-eluting stents deployed and 10% residual narrowing with DONAVAN-3 flow to the distal vessel following final stent deployment #4 successful percutaneous coronary intervention with deployment of drug-eluting stent at site of 80% proximal LAD stenosis with 0% residual narrowing and DONAVAN-3 flow to the distal vessel Recommendations Cardiac Risk Reduction Program Aggressive Medical Therapy Medications Administered Aspirin (any) Prasugrel Diagnostic Cath Approved by: Juan Carlos Finch MD Date/Time: 05/23/2018 11:02:56 <ELECTRONICALLY SIGNED> By: Juan Carlos Finch MD, FACC 05/23/18 1104 1104 1104Juan Carlos Finch MD, FACC /INF
--- NOTE | 2018-05-23 12:45 | CON ---
[address] [address] CONSULTATION Name: MARQUEZCLARI Room: [address] IN M.R.#: [id number] Admission: 05/22/18 Attend Phys: Juana Conner MD Discharge: Date of : 46 Report #: [id number] THIS REPORT FOR: //name// CC: [facility] physician/PCP Juan Carlos Conner MD DATE OF SERVICE: 05/22/2018 CARDIOLOGY CONSULTATION HISTORY OF PRESENT ILLNESS: patient's chart Dr. Conner our office. Thank you for allowing me to see this patient in cardiovascular assessment. HISTORY OF PRESENT ILLNESS: As you know, he is a very pleasant 73-year-old male with complex coronary artery disease, status post prior stenting of the LAD, circumflex and right coronary arteries. In October 2017, he presented with an acute coronary syndrome with in-stent thrombosis and mid right coronary artery and underwent stenting with deployment of a drug-eluting stent in the mid right coronary artery with good angiographic result. He had done well until the past approximately 2 weeks when he has noted increased shortness of breath with exertion. In the preceding 2 days, he has developed achy jaw pain with modest activity typical of his prior ischemic syndrome. This has come on with minimal activity and at times in last 2 days at rest. He has had no protracted bouts of pain. MEDICATIONS: He has been compliant with dual antiplatelet therapy in the form of aspirin 325 mg 2 tablets b.i.d. (self-modified) and Effient 10 mg daily. Additional cardiac medications include losartan 50 mg daily, Zetia, atorvastatin 80 mg at bedtime. Noncardiac medicines include Flomax 0.4 mg daily. PAST MEDICAL HISTORY: Remarkable for hypertension, hypercholesterolemia, prostatic hypertrophy and decreased auditory acuity. SOCIAL HISTORY: He is a nonsmoker. He is . FAMILY HISTORY: Negative for premature coronary artery disease. REVIEW OF SYSTEMS: Remarkable for the following: CARDIOVASCULAR: He notes recent chest and jaw discomfort with exertion as well as marked dyspnea on exertion. GENITOURINARY: [place] [address] CONSULTATION Name: JIMMYCLARI Room: [address]#: [id number] Admission: 05/22/18 Attend Phys: Juana Conner MD Discharge: Date of : 46 Report #: [id number] PHYSICAL EXAMINATION: GENERAL: Demonstrates a nondistressed middle-aged elderly male, in no distress. VITAL SIGNS: Blood pressure is 140/70, pulse rate is 72, respirations are 18 per minute. NECK: Jugular venous pressure is normal. CHEST: Clear. CARDIAC: Reveals normal first and second heart sounds with a question of S4 gallop, without rubs, clicks or murmurs. ABDOMEN: Soft. EXTREMITIES: Without edema with intact femoral, pedal and radial pulses. There are no deformity or arthritic changes. No petechiae or ecchymoses are noted. LABORATORY DATA: Reviewed and reveals a hemoglobin of 13.4, white blood cell count of 7700 and 169,000 platelets. Sodium 141, potassium 3.9, BUN 19, creatinine 1.1, glucose 102 mg percent. Troponin less than 0.06. NT-BNP 157, triglycerides 67, cholesterol 130, LDL 68, HDL 49. IMPRESSION: 1. Acute coronary syndrome with unstable angina. 2. Coronary artery disease, status post remote multivessel stenting with more recent stenting of the right coronary artery in October 2017. 3. Hyperlipidemia. 4. Hypertension. 5. Benign prostatic hypertrophy. 6. Decreased auditory acuity. RECOMMENDATIONS: Given the clinical scenario, which is most compatible with an acute coronary syndrome and specifically unstable angina, I would recommend urgent catheterization with strong consideration of anatomic intervention if dictated by the anatomic findings. In the interim, hydration has been commenced and we will plan to proceed on 05/22/2018 with the aforementioned catheterization. The procedure and risks have been discussed with the patient. <ELECTRONICALLY SIGNED> By: Juan Carlos Finch MD, FACC 05/23/18 1245 1611 [id number] Carlos Finch MD, FACC /nt
--- NOTE | 2018-05-23 12:45 | D ---
[address] [address] DISCHARGE SUMMARY Name: CLARI MARQUEZ Room: [address] IN M.R.#: [id number] Admission: 05/22/18 Attend Phys: Juana Conner MD Discharge: Date of : 46 Report #: [id number] THIS REPORT FOR: //name// CC: [facility] physician/PCP Juan Carlos Conner DATE OF SERVICE: 05/23/2018 FINAL DISCHARGE DIAGNOSES: 1. Unstable angina. 2. Coronary artery disease, status post multiple prior percutaneous coronary interventions. 3. Status post recanalization of chronic total occlusion of the right coronary artery on 05/22, with stenting of the proximal left anterior descending. 4. Hypertension. 5. Hyperlipidemia. 6. Benign prostatic hypertrophy. PROCEDURES: 05/22/2018 -- left heart catheterization, selective coronary arteriography and percutaneous coronary intervention with recanalization of a chronic total occlusion of the proximal right coronary artery with stenting of the proximal LAD. The patient is a very pleasant 73-year-old male with history of complex coronary artery disease, status post prior stenting of the LAD, circumflex and right coronary artery. He last presented in October of this year with an acute coronary syndrome and underwent stenting of the right coronary artery with an intraluminal thrombus noted preprocedurally. There was a good angiographic result. He was discharged to home in stable condition on dual antiplatelet therapy, which he has continued as well as a lipid lowering and antihypertensive therapy. For the 2-4 weeks prior to admission, he has noted marked dyspnea on exertion above and beyond that which he has experienced previously and for the several days prior to admission, he noted achy pain in his jaw, typical of his prior angina, associated with exertion, remitting with rest. Episodes have become more frequent and more severe. In that context, he called and sought admission to [facility]. He was admitted in the context of the acute coronary syndrome. He underwent cardiac catheterization, which revealed chronic total occlusion of the proximal right coronary artery with 80% proximal LAD stenosis. I have recanalized the right coronary artery utilizing a Fielder XT wire to penetrate the proximal cap and ultimately placing 3 drug-eluting stents from the mid back to proximal LAD, 3.0 x 30, 3.0 x 26 and 3.0 x 12 [place] [address] DISCHARGE SUMMARY Name: MARQUEZCLARI Room: [address] IN [facility]#: [id number] Admission: 05/22/18 Attend Phys: Juana Conner MD Discharge: Date of : 46 Report #: [id number] deployed, with 10% residual narrowing and DONAVAN 3 flow of the distal vessel. I then stented the proximal LAD with one 3.0 x 15 Integrity [place] drug-eluting stent deployed to 16 atmospheres with 0% residual narrowing. The patient did well post-procedurally. LABORATORY DATA: On 05/23 revealed a sodium of 140, potassium 3.9, BUN 19, creatinine 1.1. Troponin haylee inconsequentially to 0.12. Hemoglobin 12.8, white blood cell count 6500, with 142,000 platelets. The patient was discharged to home in stable condition on the following medications: Aspirin 81 mg daily. Keflex, which has been previously prescribed 500 mg daily. Finasteride 5 mg daily, losartan 50 mg daily, omeprazole 20 mg daily. Prasugrel or Effient 10 mg daily, 60 mg periprocedural dose given. Simvastatin 80 mg at bedtime, tamsulosin 0.4 mg daily, triamterene/hydrochlorothiazide 37.5/25 one tablet daily and p.r.n. sublingual nitroglycerin. I will plan to see him in the office in 6-8 weeks for followup. Thus, the patient is discharged to home in stable condition on the aforementioned medications with followup as iterated above. <ELECTRONICALLY SIGNED> By: Juan Carlos Finch MD, FACC 05/23/18 1245 1037 1118Joawais Finch MD, FACC /nt
--- NOTE | 2018-05-23 14:56 | EKG ---
[place] [address] ELECTROCARDIOGRAM REPORT Name: ANDREW MARQUEZHALEY Reynolds Room: [address] ADM IN .R.#: [id number] Admission: 05/22/18 Attend Phys: Juana Conner MD Discharge: Date of : 46 Report #: [id number] THIS REPORT FOR: //name// [facility] ED Test Date: 2018-05-22 Test Time: 12:03:56 Pat Name: CLARI MARQUEZ Department: Room: [facility] Gender: Surveyor Chain Helper: DOUGIE ROSADO : 1945 Requested By: Adam Matt Order Number: [id number] MD: Abhishek Holloway Measurements Intervals [place] Rate: 59 P: 41 [place]: 185 QRS: 30 QRSD: 97 T: 3 QT: 424 QTc: 420 Interpretive Statements Sinus rhythm Compared to ECG 11/15/2017 11:40:25 no change Electronically Signed On 05-23-2018 14:56:30 TOOLING SUPERVISOR by Abhishek Holloway [email or web address] <ELECTRONICALLY SIGNED> By: Abhishek Holloway MD, [facility] 05/23/18 1456 120 120 Abhishek Holloway MD, [facility] /EPI
--- NOTE | 2018-05-23 15:01 | EKG ---
[place] [address] ELECTROCARDIOGRAM REPORT Name: CLARI MARQUEZ Room: [address] ADM IN M.R.#: [id number] Admission: 05/22/18 Attend Phys: Juana Conner MD Discharge: Date of : 46 Report #: [id number] THIS REPORT FOR: //name// [facility] Test Date: 2018-05-22 Test Time: 20:12:33 Pat Name: CLARI MARQUEZ Department: Room: [address] Gender: M Paste Thinner: DEJAN : 1945 Requested By: Adam Matt Order Number: [id number] Reading MD: Abhishek Holloway Measurements Intervals [place] Rate: 60 P: 49 SD: 201 QRS: 22 QRSD: 95 T: -4 QT: 432 QTc: 432 Interpretive Statements Sinus rhythm Electronically Signed On 05-23-2018 15:01:34 EDUCATIONAL INTERPRETER by Abhishek Holloway [email or web address] <ELECTRONICALLY SIGNED> By: Abhishek Holloway MD, [facility] 05/23/18 1501 11 11 Abhishek Holloway MD, FACC /EPI
--- NOTE | 2018-05-23 15:05 | EKG ---
[place] [address] ELECTROCARDIOGRAM REPORT Name: JIMMYCLARI Reynolds Room: [address] ADM IN M.R.#: [id number] Admission: 05/22/18 Attend Phys: Juana Conner MD Discharge: Date of : 46 Report #: [id number] THIS REPORT FOR: //name// [facility] Test Date: 2018-05-23 Test Time: 08:04:06 Pat Name: CLARI MARQUEZ Department: Room: [address] Gender: M Fire Control Technician G: : 1945 Requested By: Juan Carlos Finch Order Number: [id number] Reading MD: Abhishek Holloway Measurements Intervals [place] Rate: 77 P: 51 [place]: 185 QRS: 21 QRSD: 93 T: -8 QT: 466 QTc: 528 Interpretive Statements Sinus rhythm Inferior infarct, old Prolonged QT interval Electronically Signed On 05-23-2018 15:04:56 REFERENCE LIBRARIAN by Abhishek Holloway [email or web address] <ELECTRONICALLY SIGNED> By: Abhishek Holloway MD, [facility] 05/23/18 1504 0804 08 Abhishek Holloway MD, FACC /EPI
== END 2018-05-23 16:40 | disposition home or self-care (01) | DRG 246 ==
LOC: M.ERS 11:57 → M.TBA-ER 13:03 → M.2W 13:03
PROVIDERS: Family Medicine; Internal Medicine; ADMIT Internal Medicine
PROC: 4A023N7 Measurement of Cardiac Sampling and Pressure, Left Heart, Percutaneous Approach (ICD-10-PCS; principal; 2018-05-22)
PROC: B211YZZ Fluoroscopy of Multiple Coronary Arteries using Other Contrast (ICD-10-PCS; principal; 2018-05-22)
PROC: 027137Z Dilation of Coronary Artery, Two Arteries with Four or More Drug-eluting Intraluminal Devices, Percutaneous Approach (ICD-10-PCS; principal; 2018-05-22)
DX: I25.110 Atherosclerotic heart disease of native coronary artery with unstable angina pectoris (principal); I24.9 Acute ischemic heart disease, unspecified; I25.10 Atherosclerotic heart disease of native coronary artery without angina pectoris; I50.9 Heart failure, unspecified; N40.0 Benign prostatic hyperplasia without lower urinary tract symptoms; E78.5 Hyperlipidemia, unspecified; N36.8 Other specified disorders of urethra; I11.0 Hypertensive heart disease with heart failure; E78.00 Pure hypercholesterolemia, unspecified; Z95.5 Presence of coronary angioplasty implant and graft; I25.2 Old myocardial infarction; Z88.8 Allergy status to other drugs, medicaments and biological substances; Z79.82 Long term (current) use of aspirin; Z79.899 Other long term (current) drug therapy; Z23 Encounter for immunization

== ENCOUNTER 2018-07-30 11:13 | Inpatient (IN) | payer OTHER ==
[~2018-07-30] VITALS: Ht 152.4 cm; Wt 85.7 kg
[~2018-07-30 11:13] MED LIST changes: +KEFLEX500 M1 PO
[2018-07-30 11:18] VITALS: BP 116/68
--- NOTE | 2018-07-30 11:24 | NUR ---
PT'S SPOUSE REPORTS THAT THE PATIENT TOOK TWO TABLETS OF 324 MG ASPIRIN THIS MORNING BEFORE ARRIVAL. PHYSICIAN NOTIFIED.
[2018-07-30 11:39] LABS: ABSOLUTE BASOPHILS 0.1 thou/uL (0.0-0.2); ABSOLUTE EOSINOPHILS 0.2 thou/uL (0.0-0.7); ABSOLUTE LYMPHOCYTES 1.1 thou/uL (0.8-5.3); ABSOLUTE MONOCYTES 0.6 thou/uL (0.0-1.2); BASOPHILS 1.2 %; EOSINOPHILS 3.2 %; HEMATOCRIT 43.5 % (42.0-52.0); HEMOGLOBIN 14.4 gm/dL (14.0-18.0); LYMPHOCYTES 15.9 %; MCH 30.6 pg (26.0-34.0); MCHC 33.2 g/dL (28.0-37.0); MCV 92.3 fL (80.0-100.0); MONOCYTES 8.9 %; MPV 8.9 fl. (7.2-11.1); NUCLEATED RBCS 0 /100WBC; PLATELET COUNT* 161 thou/uL (150-400); POLYS 70.8 %; RBC 4.71 mil/uL (4.50-6.00); RDW-CV 14.5 % (10.5-14.5); WBC 7.1 thou/uL (4.0-11.0)
[2018-07-30 11:50] LABS: APTT 28.5 Seconds (25.0-31.3); INR 1.1; PROTIME 11.1 Seconds (9.20-11.50)
[2018-07-30 12:06] LABS: ANION GAP 10 mmol/L (7-16); BUN 25 mg/dL (7-18); CALCIUM 8.9 mg/dL (8.5-10.1); CHLORIDE 103 mmol/L (98-107); CO2 25 mmol/L (21-32); CREATININE 1.3 mg/dL (0.6-1.3); GLUCOSE 107 mg/dL (70-99); POTASSIUM 3.7 mmol/L (3.5-5.1); SODIUM 138 mmol/L (136-145); TROPONIN-I LEVEL <0.06 ng/mL (<0.06)
[2018-07-30 12:12] LABS: ALBUMIN 3.5 g/dL (3.4-5.0); ALKALINE PHOSPHATASE 98 U/L (46-116); LIPASE 83 U/L (73-393); MAGNESIUM 1.9 mg/dL (1.8-2.4); NT-PRO BRAIN NAT PEPTIDE 72 pg/mL (<300); SGOT 28 U/L (15-37); SGPT 17 U/L (30-65); TOTAL BILIRUBIN 0.3 mg/dL (<0.1-1.0); TOTAL PROTEIN 7.3 g/dL (6.4-8.2)
[2018-07-30] MEDS ORDERED: VITAMIN B-12500 MCG PO (12:18)
[2018-07-30] MEDS ORDERED: METFORMIN HCL500 MG PO (12:20)
[2018-07-30] MEDS ORDERED: GLUCOSAMINE HC500 MG PO (12:35)
[2018-07-30] MEDS ORDERED: KEFLEX500 M1 PO (12:36)
[2018-07-30 14:45] VITALS: BP 115/60
[2018-07-30 15:12] VITALS: BP 103/81
--- NOTE | 2018-07-30 16:05 | NUR ---
RECIEVIED REPORT FROM ALE RN IN ER OF EXPECTED ADMISSION AT 1420- DX: CHEST PAIN- PT ARRIVED TO ROOM 214 VIA CART WITH SBA TO BED X- PHONOGRAPH MECHANIC PLACED ORDERED, TRACING SR- VS 97.4 20 103/81 56 100% ON RA- PT A&O X4- CONTINENT OF BOWEL AND BLADDER- SBA WITH TRANSFERS FOR SAFETY- LCTA, RESP EVEN AND UN-LABORED- ABD SOFT/ROUND/NON-TENDER, BS X4 QUADS- PT REPORTS TO HAVE HAD BM THIS AM- IV NOTED TO LEFT AC INTACT, HEPARIN BOLUS AND DRIP INITIATED PER ORDERED AT 1525 AND CURRENLTY INFUSSING AT 10ML/HR WITH APPT REDRAW SCHEDULED FOR 2124- SKIN C/D/I- BAND-AIDES NOTED TO LEFT HAND 3 FINGERS, PT REPORTS TO USE THEN FOR DRY SKIN- ADEQUITE EYE SIGHT WITH GLASSES NOTED- UPPER AND LOWER DENTURES NOTED IN PLACE WELL AURA HEARING AIDES- PT REPORTS PAIN TO AHVE SUBSIDED AT TIME OF ADMISSION- CALL LIGHT AND PERSONAL BELONGINGS WITH IN REACH- HOURLY ROUNDS IN PLACE R/T SAFETY/NEEDS- ALL NEEDS MET AT THIS TIME-WCTM
--- NOTE | 2018-07-30 16:23 | EKG ---
[place] [address] ELECTROCARDIOGRAM REPORT Name: JU MARQUEZDAR Reynolds Room: [address] ADM IN .R.#: [id number] Admission: 07/30/18 Attend Phys: Andrei Ren Discharge: Date of : 47 Report #: [id number] THIS REPORT FOR: //name// [facility] ED Test Date: 2018-07-30 Test Time: 11:17:34 Pat Name: CLARI MARQUEZ Department: Room: [facility] Gender: Water Service Supervisor: Jeanette RAINEY : 1945 Requested By: Moise Mitchell Order Number: [id number] MD: Abhishek Holloway Measurements Intervals [place] Rate: 59 P: 39 [place]: 189 QRS: 28 QRSD: 104 T: 42 QT: 412 QTc: 409 Interpretive Statements Sinus rhythm Compared to ECG 05/23/2018 08:04:06 Myocardial infarct finding no longer present Prolonged QT interval no longer present Electronically Signed On 07-30-2018 16:23:42 CLASSIFICATION COUNSELOR by Abhishek Holloway [email or web address] <ELECTRONICALLY SIGNED> By: Abhishek Holloway MD, [facility] 07/30/18 1623 1117 1117 Abhishek Holloway MD, [facility] /EPI
[2018-07-30 20:00] VITALS: BP 103/62
--- NOTE | 2018-07-30 20:00 | NUR ---
RECEIVED REPORT AND ASSUMED CARE OF PT, ASSESSMENT COMPLETED. VISITING WITH FAMILY. DENIES CP OR SOB. GAIT STEADY TO AND FROM BR. HEPARIN INFUSING PRE PROTOCOL. TELEMETRY ON SHOWING SR TO SB. DISCUSSED CARDIAC CATH IN AM. WILL CONT TO MONITOR AND ASSIST NEEDED.
[2018-07-31] VITALS (14 sets, daily range): BP systolic 83–122; BP diastolic 42–66
--- NOTE | 2018-07-31 06:45 | NUR ---
SLEPT WELL TONIGHT. DENIES CP. HELD NITRO PASTE DUE TO LOW BP. TELEMETRY CONT TO SHOW SR TO SB. NO CHANGE IN ASSESSMENT. HS GOALS OF REST AND SAFETY ACHIEVED. HOURLY ROUNDING OBSERVED.
--- NOTE | 2018-07-31 08:48 | CON ---
[address] [address] CONSULTATION Name: CLARI MARQUEZ Room: [address] IN M.R.#: [id number] Admission: 07/30/18 Attend Phys: Andrei Ren Discharge: Date of : 47 Report #: [id number] THIS REPORT FOR: //name// CC: Dr. Juan Finch MD [facility] Juan Groves DATE OF SERVICE: 07/30/2018 INDICATION: Unstable angina. HISTORY OF PRESENT ILLNESS: The patient is a very pleasant 73-year-old gentleman who is well known to our service. He has coronary artery disease with multiple interventions in the past. He has focal areas of stenting involving the LAD and circumflex. He has a long region of stented artery involving the proximal to distal right coronary artery. In May, region of chronic occlusion in the right coronary stent was recanalized and 3 drug-eluting stents placed. Since that time, the patient had been doing relatively well until approximately 9:30 this morning when he had recurrence of his typical angina with chest pressure radiating to the neck and left jaw. Since the onset of his discomfort, the pain has waxed and waned. His initial troponin is unremarkable. EKG shows no acute ST elevation. PAST MEDICAL HISTORY: 1. Coronary artery disease with multiple interventions as outlined above. 2. Hypertension. 3. Dyslipidemia. 4. BPH. 5. Urinary retention. SOCIAL HISTORY: The patient is . He is a nonsmoker. FAMILY HISTORY: Noncontributory. REVIEW OF SYSTEMS: As per HPI, otherwise unremarkable. PHYSICAL EXAMINATION: VITAL SIGNS: Stable. Blood pressure 116/68, pulse is 67 and regular. GENERAL: This is a pleasant gentleman, who is in no distress. Mood and affect appropriate. HEENT: The patient is wearing glasses. Extraocular muscles intact. Mucous membranes moist. NECK: Shows no jugular venous distention. There are no carotid bruits. CHEST: [place] [address] CONSULTATION Name: MARQUEZCLARI Room: [address] IN [facility]#: [id number] Admission: 07/30/18 Attend Phys: Andrei Ren Discharge: Date of : 46 Report #: [id number] CARDIOVASCULAR: Reveals regular rhythm, normal S1 and S2. I do not appreciate gallop or murmur. ABDOMEN: Reveals normal bowel sounds. The abdomen is soft and nontender. EXTREMITIES: Shows no edema. SKIN: Warm and dry. LABORATORY DATA: Reviewed. Initial troponin is less than 0.06. NT-proBNP is 72. Chest x-ray shows no acute cardiopulmonary abnormality. IMPRESSION AND RECOMMENDATIONS: 1. Unstable angina. Admitting the patient to the hospital for heparin drip and medication adjustment. We will proceed with invasive evaluation. 2. Coronary artery disease, presently on dual antiplatelet therapy. Continue combination of prasugrel and aspirin. 3. Dyslipidemia. Continue statin agent at this time. We will switch to atorvastatin. 4. Hypertension, adequately controlled on home regimen. <ELECTRONICALLY SIGNED> By: Jovany Espinal MD, FACC 07/31/18 0848 1355 0739Micjuan Espinal MD, FACC /nt
--- NOTE | 2018-07-31 12:19 | NUR ---
Pt is A&O. Resides at home with his . Independent and active, Pt recently retired in March 2018. No DME. No hx of HH or SNF. Pt to have cath today. [place]al [place]. No needs anticipated. Following.
--- NOTE | 2018-07-31 16:31 | CARD ---
[address] [address] CARDIAC CATH REPORT Name: JIMMYCLARI Reynolds Room: [address] IN [facility]#: [id number] Admission: 07/30/18 Attend Phys: Andrei Ren Discharge: Date of : 47 Report #: [id number] THIS REPORT FOR: //name// APPROVED REPORT Study performed: 07/31/2018 11:30:10 Patient Details Patient Status: In-Patient Room #: 214 The patient is a 73 year-old male Event Personnel Abhishek Holloway Expedition Supervisor, Susan Mcclure RN Card Player, Miguelito Rodriguez (R) Monitor, Arun Quintana Scrub Procedures Performed Left Heart Cath w/or w/o Coronaries Indication Chest pain Risk Factors Hypercholesterolemia, Coronary Artery DiseaseHypertension Previous Procedures/Diagnoses Previous PCI Procedure Narrative The patient was brought electively to the Cardiac Catheterization Laboratory and was prepped and draped in a sterile manner. The right femoral was infiltrated with 1% Lidocaine subcutaneous anesthesia. A 6fr Ultimum Sheath sheath was inserted into the right femoral artery. Coronary angiography was performed using coronary diagnostic catheters. The right coronary system was accessed and visualized with a Diagnostic JR4 catheter. The left coronary system was accessed and visualized with a Diagnostic JL4 catheter. The left ventricle was accessed and visualized with a Diagnostic Angled Pigtail catheter. Left ventricular/Aortic Valve gradient assessed via catheter pullback. Left ventriculogram was performed in AYALA projection. Closure device was deployed with a 6 Fr Mynx 6Fr/7Fr. The patient tolerated the procedure well and there were no complications associated with the procedure. There was no hematoma. Intraoperative Conscious Sedation Sedation start time: 12:17 Case end Time: [place] [address] CARDIAC CATH REPORT Name: CLARI MARQUEZ Room: [address]#: [id number] Admission: 07/30/18 Attend Phys: Andrei Ren Discharge: Date of : 47 Report #: [id number] 12:40 Fentanyl 25 mcg Versed 2 mg Fluoro Time: 3.3 minutes Dose: DAP 24497 cGycm2 733 mGy Contrast Type and Amount: Visipaque 130 ml Coronary Angiography The patient's coronary anatomy is right dominant. Diagnostic Cath Left Main 0% stenosis LAD Stent in proximal lad with 0% stenosis. 30% stenosis noted in mid lad Circumflex 0% stenosis OM2 Stent with 0% stenosis Right Coronary long stent that extended from ostium to beyond acute margin with 30% proximal stenosis. RCA beyond the stent was noted to have a narrow lumen. Left Ventriculography The left ventricle is normal in size with normal contractility. The left ventricular ejection fraction is estimated to be 60-65%. Left ventricular wall motion abnormalities are not present. There is no mitral insufficiency. Hemodynamics The aortic pressure is 122/60 mmHg with a mean of 86 mmHg. The left ventricular pressure is 118/10 mmHg with a mean of mmHg. The left ventricular end diastolic pressure is 13 mmHg. There was no gradient across the aortic valve upon pullback. Pullback from the left ventricle to the aorta revealed no gradient across the aortic valve. Conclusion 1. no restenosis noted of stents in the proximal lad, 2nd marginal branch of the circumflex, and the rca 2. niormal LV function Recommendations Aggressive Medical Therapy <ELECTRONICALLY SIGNED> By: Abhishek Holloway MD, FACC 07/31/18 1631 1631 1631Develin Holloway MD, FACC /INF
[2018-07-31] MEDS ORDERED: IMDUR 30 MG TAB30 M1 PO (17:25)
--- NOTE | 2018-07-31 18:34 | NUR ---
ORDER RECEIVE D TO [facility] TO SELF CARE WITH SPOUSE. CARDIOLOGY HAS SEEN HIM POST CATH AND PRESCRIBED NEW MEDICATION FOR DISCHARGE. IV AND TELEMETRY PACK REMOVED. MED REC, MEDICATION EDUCATION, STROKE EDUCATION, AND LIFTING/DRIVING RESTRICTIONS FOR POST CARDIAC CATH DISCUSSED AND AGREED UPON BY PATIENT AND HIS SPOUSE. HOURLKY ROUNDING COMPLETED FOR PATIENT SAFETY. DISCHARGE TIME OF 18:20.
== END 2018-07-31 18:23 | disposition home or self-care (01) | DRG 287 ==
LOC: M.ERS 11:13 → M.TBA-ER 12:52 → M.2W 14:56
PROVIDERS: Emergency Medicine Emergency Medical Services; ADMIT Internal Medicine
PROC: 4A023N7 Measurement of Cardiac Sampling and Pressure, Left Heart, Percutaneous Approach (ICD-10-PCS; principal; 2018-07-31)
PROC: B211YZZ Fluoroscopy of Multiple Coronary Arteries using Other Contrast (ICD-10-PCS; principal; 2018-07-31)
PROC: B215YZZ Fluoroscopy of Left Heart using Other Contrast (ICD-10-PCS; principal; 2018-07-31)
DX: I25.110 Atherosclerotic heart disease of native coronary artery with unstable angina pectoris (principal); I50.9 Heart failure, unspecified; E78.5 Hyperlipidemia, unspecified; N40.0 Benign prostatic hyperplasia without lower urinary tract symptoms; E78.00 Pure hypercholesterolemia, unspecified; Z95.5 Presence of coronary angioplasty implant and graft; I11.0 Hypertensive heart disease with heart failure; I25.2 Old myocardial infarction; Z88.8 Allergy status to other drugs, medicaments and biological substances; Z79.82 Long term (current) use of aspirin; Z79.899 Other long term (current) drug therapy; Z87.891 Personal history of nicotine dependence

== ENCOUNTER 2018-08-11 20:38 | Inpatient (IN) | payer OTHER ==
[~2018-08-11] VITALS: Ht 172.7 cm; Wt 84.8 kg
[~2018-08-11 20:38] MED LIST changes: +GLUCOSAMINE HC500 MG PO; +IMDUR 30 MG TAB30 M1 PO; +METFORMIN HCL500 MG PO
[2018-08-11 20:40] VITALS: BP 125/67
[2018-08-11 21:09] LABS: ABSOLUTE BASOPHILS 0.1 thou/uL (0.0-0.2); ABSOLUTE EOSINOPHILS 0.4 thou/uL (0.0-0.7); ABSOLUTE LYMPHOCYTES 1.6 thou/uL (0.8-5.3); ABSOLUTE MONOCYTES 0.6 thou/uL (0.0-1.2); ABSOLUTE NEUTROPHILS 2.9 thou/uL (1.6-8.1); BASOPHILS 1.2 %; EOSINOPHILS 6.8 %; HEMATOCRIT 39.3 % (42.0-52.0); HEMOGLOBIN 13.2 gm/dL (14.0-18.0); LYMPHOCYTES 28.1 %; MCH 30.7 pg (26.0-34.0); MCHC 33.5 g/dL (28.0-37.0); MCV 91.5 fL (80.0-100.0); MONOCYTES 10.9 %; MPV 9.4 fl. (7.2-11.1); NUCLEATED RBCS 0 /100WBC; PLATELET COUNT* 156 thou/uL (150-400); RDW-CV 14.7 % (10.5-14.5); WBC 5.6 thou/uL (4.0-11.0)
[2018-08-11 21:25] LABS: INR 1.1; PROTIME 11.1 Seconds (9.20-11.50)
[2018-08-11 21:29] LABS: ANION GAP 6 mmol/L (7-16); BUN 28 mg/dL (7-18); CALCIUM 8.4 mg/dL (8.5-10.1); CHLORIDE 104 mmol/L (98-107); CO2 28 mmol/L (21-32); CREATININE 1.4 mg/dL (0.6-1.3); GLUCOSE 158 mg/dL (70-99); POTASSIUM 3.9 mmol/L (3.5-5.1); SODIUM 138 mmol/L (136-145); TROPONIN-I LEVEL <0.06 ng/mL (<0.06)
[2018-08-11 21:31] LABS: ALBUMIN 3.2 g/dL (3.4-5.0); ALKALINE PHOSPHATASE 102 U/L (46-116); LIPASE 91 U/L (73-393); NT-PRO BRAIN NAT PEPTIDE 90 pg/mL (<300); SGOT 20 U/L (15-37); SGPT 16 U/L (30-65); TOTAL BILIRUBIN 0.2 mg/dL (<0.1-1.0); TOTAL PROTEIN 6.7 g/dL (6.4-8.2)
[2018-08-11] MEDS ORDERED: TERBINAFINE HC250 MG PO (22:09)
[2018-08-11 22:20] VITALS: BP 117/63
[2018-08-11 23:00] VITALS: BP 108/60
[2018-08-12] VITALS (9 sets, daily range): BP systolic 81–114; BP diastolic 37–66
[2018-08-12 07:46] LABS: CALCIUM 8.7 mg/dL (8.5-10.1); CREATININE 1.2 mg/dL (0.6-1.3); POTASSIUM 3.8 mmol/L (3.5-5.1)
--- NOTE | 2018-08-12 09:37 | EKG ---
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: [place] : 1945 Requested By: Ras Le Order Number: [id number] MD: Abhishek Holloway Measurements Intervals [place] Rate: 59 P: 44 IN: 150 QRS: 34 QRSD: 108 T: 29 QT: 439 QTc: 435 Interpretive Statements Sinus rhythm Baseline wander in lead(s) I Compared to ECG 07/30/2018 11:17:34 No significant changes Electronically Signed On 08-12-2018 9:37:38 CDT by Abhishek Holloway [email or web address] <ELECTRONICALLY SIGNED> By: Abhishek Holloway MD, [facility] 08/12/18 0937 42 42 Abhishek Holloway MD, [facility] /EPI
[2018-08-12 23:07] LABS: GLYCOHEMOGLOBIN (HGB A1C) 6.6 % (4.8-5.6)
[2018-08-13 03:25] LABS: HEMATOCRIT 35.2 % (42.0-52.0); HEMOGLOBIN 11.5 gm/dL (14.0-18.0); MCHC 32.6 g/dL (28.0-37.0); MCV 92.2 fL (80.0-100.0); MPV 9.6 fl. (7.2-11.1); RBC 3.82 mil/uL (4.50-6.00); RDW-CV 14.8 % (10.5-14.5); WBC 6.2 thou/uL (4.0-11.0)
[2018-08-13 03:48] LABS: CREATININE 1.2 mg/dL (0.6-1.3); POTASSIUM 3.6 mmol/L (3.5-5.1); TROPONIN-I LEVEL 0.11 ng/mL (<0.06)
[2018-08-13] MEDS ORDERED: METFORMIN HCL500 MG PO (07:28)
[2018-08-13] MEDS ORDERED: ASPIR 8181 MG PO (07:29)
[2018-08-13] MEDS ORDERED: LIPITOR 20 MG T20 M1 PO (07:30)
[2018-08-13 08:00] VITALS: BP 107/63
[2018-08-13] MEDS ORDERED: ASPIRIN325 PO (09:36)
[2018-08-13 09:51] VITALS: BP 107/63
[2018-08-13 10:00] VITALS: BP 102/63
[2018-08-13 10:47] VITALS: BP 107/63
--- NOTE | 2018-08-13 13:38 | EKG ---
[place] [address] ELECTROCARDIOGRAM REPORT Name: MARQUEZCLARI Room: [address] ADM IN M.R.#: [id number] Admission: 08/11/18 Attend Phys: Manoj Gunderson MD Discharge: Date of : 47 Report #: [id number] THIS REPORT FOR: //name// [facility] Test Date: 2018-08-12 Test Time: 16:00:18 Pat Name: CLARI MARQUEZ Department: Room: [address] Gender: M Cardiology Rn: : 1945 Requested By: Abhishek Holloway Order Number: [id number] Tanner MD: Jovany Espinal Measurements Intervals [place] Rate: 54 P: 28 TN: 179 QRS: 21 QRSD: 97 T: 10 QT: 445 QTc: 422 Interpretive Statements Sinus rhythm Inferior infarct, old Compared to ECG 08/11/2018 20:43:09 Myocardial infarct finding now present Electronically Signed On 08-13-2018 13:38:08 CDT by Jovany Espinal [email or web address] <ELECTRONICALLY SIGNED> By: Jovany Espinal MD, [facility] 08/13/18 1338 1600 99 Jovany Espinal MD, FACC /EPI
--- NOTE | 2018-08-13 13:45 | EKG ---
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 Making Supervisor: : 1945 Requested By: Abhishek Holloway Order Number: [id number] Reading MD: Jovany Espinal Measurements Intervals [place] Rate: 69 P: 48 VA: 189 QRS: 19 QRSD: 101 T: 1 QT: 414 QTc: 444 Interpretive Statements Sinus rhythm Inferior infarct, old Compared to ECG 08/11/2018 20:43:09 Myocardial infarct finding now present Electronically Signed On 08-13-2018 13:45:09 CDT by Jovany Espinal [email or web address] <ELECTRONICALLY SIGNED> By: Jovany Espinal MD, [facility] 08/13/18 1345 0802 08 Jovany Espinal MD, FAC /EPI
--- NOTE | 2018-08-13 17:50 | CARD ---
[address] [address] CARDIAC CATH REPORT Name: MARQUEZCLARI Room: [address]#: [id number] Admission: 08/11/18 Attend Phys: Manoj Gunderson MD Discharge: 08/13/18 Date of : 46 Report #: [id number] THIS REPORT FOR: //name// APPROVED REPORT Study performed: 08/12/2018 10:42:44 Patient Details Patient Status: In-Patient Room #: 003 The patient is a 73 year-old male Event Personnel Abhishek Holloway Newspaper Inserter, Emilee Brownlee, Alexandra Amado RTR Scrub, Francia Daniel RN Scraper Loader Operator Procedures Performed Art Access - R radial artery , Selective Right and Left Coronary AngiographyLe Heart Cath w/or w/o Coronaries [id number] [facility] [address] Place w/wo Plasty Single RCA [id number] Indication Unstable angina Risk Factors Arterial Hypertension, Hypercholesterolemia Previous Procedures/Diagnoses Previous PCI Admission/Lab Medications/Medications given during procedure Heparin Unfract. Procedure Narrative The patient was brought electively to the Cardiac Catheterization Laboratory and was prepped and draped in a sterile manner. The right wrist was infiltrated with 2% Lidocaine subcutaneous anesthesia. A Slender Glidesheath sheath was inserted into the right radial artery. Coronary angiography was performed using coronary diagnostic catheters. The right coronary system was accessed and visualized with a 6F JR 4.0 catheter. The left coronary system was accessed and visualized with a 6FR XB 3.5 100CM catheter. The left ventricle was accessed and visualized with a Diagnostic catheter. Left ventricular/Aortic Valve gradient assessed via catheter pullback. Closure device was deployed with a 6 Fr Vasc-Band Reg 24cm. The patient tolerated the procedure well and [place] [address] CARDIAC CATH REPORT Name: CLARI MARQUEZ Room: [address]#: [id number] Admission: 08/11/18 Attend Phys: Manoj Gunderson MD Discharge: 08/13/18 Date of : 46 Report #: [id number] associated with the procedure. There was no hematoma. Intraoperative Conscious Sedation Sedation start time: 12:50 Case end Time: 13:40 Versed 2 mg Fluoro Time: 10.1 minutes Dose: DAP 94103 cGycm2 1430.36 mGy Contrast Type and Amount: Visipaque 200 ml Coronary Angiography The patient's coronary anatomy is right dominant. Diagnostic Cath Left Main 0% stenosis LAD proximal stent with 0% stenosis. mid lad had a 30% stenosis Diagonal 2 0stial 80% stenosis Circumflex 30% mid stenosis OM2 stent with 0% stenosis Right Coronary long stent that started in ostium and extended beyond acute margin. Noted to have a mid discrete 80% stenosis, and proximal 30% stenosis Ramus 0% stenosis Left Ventriculography Left Ventriculography was not performed. Hemodynamics The aortic pressure is 101/68 mmHg with a mean of mmHg. The left ventricular pressure is 103/10 mmHg with a mean of mmHg. The left ventricular end diastolic pressure is 11 mmHg. There was no gradient across the aortic valve upon pullback. Pullback from the left ventricle to the aorta revealed no gradient across the aortic valve. PCI Technique Lesion Anticoagulation was achieved with Heparin. Patient was preloaded with Effient. Percutaneous coronary intervention was performed on the mid right coronary artery. The lesion stenosis prior to intervention was 80% with DONAVAN 3 flow. A 6F JR 4.0 Guide Catheter was used to engage the RCA ostium. A IG: BMW 190cm Interventional Guidewire was used to cross the lesion[place] [address] CARDIAC CATH REPORT Name: CLARI MARQUEZ Room: [address]#: [id number] Admission: 08/11/18 Attend Phys: Manoj Gunderson MD Discharge: 08/13/18 Date of : 46 Report #: [id number] A Balloon catheter Trek RX 2.5 X 8 was inserted and inflated up to 12.00atm for 13seconds. Repeat angiography revealed the following post-dilatation results: 40% stenosis. STENT DEPLOYMENT A drug-eluting stent Neel RX Stent 2.5X12mm was inserted and inflated up to 16.00atm for 15seconds. Repeat angiography revealed the following post-stent deployment results: 0% stenosis. Additional Inflation: 19.00atm for 18seconds. Additional Inflation: 20.00atm for 14seconds. Required herlinda wire to advance stent to stenosis. Unable to advance 15 mm x 2.75 mm drug eliuting stent to area of stenosis that appeared to be secondary to proximal tortuosity and angle of RCA from the guide catheter. Final angiography reveals 0 % stenosis with DONAVAN 3 flow. Conclusion 1. no restenosis of stents in proximal lad and 2nd marginal branch of circumflex 2. 80% restenosis in middle of stent in proximal rca 3. successful placement of a drug eluting stent in mid rca Recommendations Cardiac Rehabilitation Referral Aggressive Medical Therapy <ELECTRONICALLY SIGNED> By: Abhishek Holloway MD, FACC 08/13/181749 49 49Daamada Holloway MD, FACC /INF
--- NOTE | 2018-08-14 13:23 | CON ---
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 The patient has an extensive past medical history. He has had multiple stents. His first stent was apparently placed at [facility] back in 08/2006. He has had multiple stents placed by Dr. Finch since that time. He had a stent placed at [facility] in 2007. He had a stent placed at [facility] in 2012. He has had stents placed here at [facility] in 09/2016, 12/2016 and again his last stent was in 05/2018 when he had 4 stents placed here at [facility]. He was actually just recently admitted to [place] last month with chest pain and seen by Dr. Espinal. I actually performed a repeat heart catheterization on 07/31/2018 from the right femoral artery. Results showed a stent in the proximal LAD with no restenosis. The circumflex had no significant stenosis. There was a stent in the second marginal branch of circumflex with no restenosis. The right coronary artery had stenting and extended from the ostium to beyond the acute margin with a 30% proximal restenosis. The right coronary artery beyond the stented vessel was noted to have a very narrow lumen. Ejection fraction of 60-65%. There was felt to be no significant restenosis and medical therapy was recommended. He was placed on Imdur. However, he continues to have chest pain. It is not related to exertion, meals, coughing. Denied any trauma to his chest. The pain radiates into his shoulder. He has some numbness of his arm. He has had no bleeding, fever or cough. Because of chest pain, he finally came to the hospital last night and was admitted. He notes some shortness of breath, but no palpitation or syncope. PAST MEDICAL HISTORY: He has had back surgery, carpal tunnel surgery, knee surgery, rotator cuff surgery. He has hypertension, hyperlipidemia. MEDICATIONS: Consists of aspirin, Effient, losartan, simvastatin, Dyazide, Flomax, Proscar, omeprazole, and Imdur. ALLERGIES: HE IS INTOLERANT TO LISINOPRIL. FAMILY HISTORY: He has had 2 sisters with bypass surgery. SOCIAL HISTORY: He is . [place] [address] CONSULTATION Name: CLARI MARQUEZ Room: [address]#: [id number] Admission: 08/11/18 Attend Phys: Manoj Gunderson MD Discharge: 08/13/18 Date of : 47 Report #: [id number] [place]. 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 Quit smoking years ago. Drinks alcohol only occasionally. REVIEW OF SYSTEMS: He has had no history of stroke, asthma, peptic ulcer disease, liver disease, kidney disease, cancer, psychiatric illness, chronic skin condition. PHYSICAL EXAMINATION: GENERAL: Revealed an elderly male, lying in bed. He appeared in no distress. VITAL SIGNS: He had a blood pressure of 120/60, pulse was 60. He was afebrile. HEENT: He was anicteric. Conjunctivae pink. Mucous membranes moist. NECK: Neck veins nondistended. No carotid bruits. Neck supple. CHEST: Clear to auscultation. CARDIOVASCULAR: Regular rate without murmur. ABDOMEN: Soft. EXTREMITIES: Had no edema. Posterior tibial pulse 2+ bilaterally. SKIN: Warm, dry. NEUROLOGIC: Nonfocal. LYMPH: No adenopathy. MUSCULOSKELETAL: No joint effusion. DIAGNOSTIC DATA: His ECG last night showed a sinus rhythm. There was no ST or T-wave change noted. His workup in the Emergency Room last night, he had a portable chest x-ray that showed evidence of stents, old rib fracture, some atelectasis, otherwise unremarkable. LABORATORY DATA: Sodium 140, creatinine 1.2. His troponin less than 0.06. In May, his cholesterol was 109, triglyceride 59, HDL 47, LDL 51. White blood cell count 5.6, hemoglobin 13.2. IMPRESSION AND RECOMMENDATIONS: 1. Chest pain. Atypical for angina. The pain is persistent. No evidence of acute ischemia. I suspect his chest pain is noncardiac. 2. Previous multiple stents. The patient is on Effient and aspirin. 3. Hypertension. The patient is on an ARB. 4. Hypercholesterolemia. The patient is on a statin drug. 5. Previous tobacco abuse. <ELECTRONICALLY SIGNED> By: Abhishek Holloway MD, [facility] 08/14/18 1323 0851 0000David Nel Holloway MD, FACC /nt
== END 2018-08-13 11:00 | disposition home or self-care (01) | DRG 247 ==
LOC: M.ERS 20:38 → M.TBA-ER 21:38 → M.ICU 21:38
PROVIDERS: Emergency Medicine; Internal Medicine Cardiovascular Disease; ADMIT Internal Medicine
PROC: B211YZZ Fluoroscopy of Multiple Coronary Arteries using Other Contrast (ICD-10-PCS; principal; 2018-08-12)
PROC: 027034Z Dilation of Coronary Artery, One Artery with Drug-eluting Intraluminal Device, Percutaneous Approach (ICD-10-PCS; principal; 2018-08-12)
PROC: 4A023N7 Measurement of Cardiac Sampling and Pressure, Left Heart, Percutaneous Approach (ICD-10-PCS; principal; 2018-08-12)
DX: T82.855A Stenosis of coronary artery stent, initial encounter (principal); I25.110 Atherosclerotic heart disease of native coronary artery with unstable angina pectoris; I50.32 Chronic diastolic (congestive) heart failure; I13.0 Hypertensive heart and chronic kidney disease with heart failure and stage 1 through stage 4 chronic kidney disease, or unspecified chronic kidney disease; E78.00 Pure hypercholesterolemia, unspecified; E78.5 Hyperlipidemia, unspecified; N18.2 Chronic kidney disease, stage 2 (mild); E11.65 Type 2 diabetes mellitus with hyperglycemia; E11.22 Type 2 diabetes mellitus with diabetic chronic kidney disease; Z79.82 Long term (current) use of aspirin; Z95.5 Presence of coronary angioplasty implant and graft; I25.2 Old myocardial infarction; Z88.8 Allergy status to other drugs, medicaments and biological substances; Z82.49 Family history of ischemic heart disease and other diseases of the circulatory system; Z87.891 Personal history of nicotine dependence; Z79.899 Other long term (current) drug therapy; K21.9 Gastro-esophageal reflux disease without esophagitis

== ENCOUNTER 2018-11-24 16:55 | Inpatient (IN) | payer OTHER ==
[~2018-11-24] VITALS: Ht 172.7 cm; Wt 81.8 kg
[~2018-11-24 16:55] MED LIST changes: +LIPITOR 20 MG T20 M1 PO; +TERBINAFINE HC250 MG PO
[2018-11-24 16:59] VITALS: BP 120/56
[2018-11-24] MEDS ORDERED: ZOCOR40 MG PO (17:09)
[2018-11-24] MEDS ORDERED: VITAMIN B-12500 MCG PO (17:10)
[2018-11-24] MEDS ORDERED: ADVIL MIGRAINE200 M1 PO (17:10)
[2018-11-24] MEDS ORDERED: GLUCOSAMINE HC500 MG PO (17:11)
[2018-11-24] MEDS ORDERED: KEFLEX500 M1 PO (17:11)
[2018-11-24 17:18] LABS: ABSOLUTE BASOPHILS 0.1 thou/uL (0.0-0.2); ABSOLUTE EOSINOPHILS 0.3 thou/uL (0.0-0.7); ABSOLUTE LYMPHOCYTES 1.4 thou/uL (0.8-5.3); ABSOLUTE MONOCYTES 0.7 thou/uL (0.0-1.2); ABSOLUTE NEUTROPHILS 3.3 thou/uL (1.6-8.1); BASOPHILS 1.2 %; HEMATOCRIT 38.7 % (42.0-52.0); HEMOGLOBIN 12.8 gm/dL (14.0-18.0); LYMPHOCYTES 24.4 %; MCH 31.4 pg (26.0-34.0); MCV 95.1 fL (80.0-100.0); MONOCYTES 11.3 %; MPV 9.5 fl. (7.2-11.1); NUCLEATED RBCS 0 /100WBC; PLATELET COUNT* 140 thou/uL (150-400); POLYS 57.1 %; RBC 4.07 mil/uL (4.50-6.00); RDW-CV 16.7 % (10.5-14.5); WBC 5.8 thou/uL (4.0-11.0)
[2018-11-24 17:28] LABS: ANION GAP 6 mmol/L (7-16); BUN 27 mg/dL (7-18); CALCIUM 8.7 mg/dL (8.5-10.1); CHLORIDE 106 mmol/L (98-107); CO2 29 mmol/L (21-32); CREATININE 1.1 mg/dL (0.6-1.3); GLUCOSE 121 mg/dL (70-99); POTASSIUM 3.9 mmol/L (3.5-5.1); SODIUM 141 mmol/L (136-145)
[2018-11-24 17:30] LABS: APTT 29.2 Seconds (25.0-31.3); INR 1.1; PROTIME 11.1 Seconds (9.20-11.50)
[2018-11-24 17:40] LABS: ALBUMIN 3.4 g/dL (3.4-5.0); ALKALINE PHOSPHATASE 93 U/L (46-116); CK-MB MASS 4.7 ng/mL (<0.5-3.6); LIPASE 107 U/L (73-393); MAGNESIUM 1.7 mg/dL (1.8-2.4); NT-PRO BRAIN NAT PEPTIDE 146 pg/mL (<300); SGOT 25 U/L (15-37); SGPT 26 U/L (30-65); TOTAL BILIRUBIN 0.2 mg/dL (<0.1-1.0); TOTAL PROTEIN 6.8 g/dL (6.4-8.2); TROPONIN-I LEVEL <0.06 ng/mL (<0.06)
[2018-11-24 20:00] VITALS: BP 115/63
[2018-11-24 20:25] VITALS: BP 114/63
[2018-11-24] MEDS ORDERED: METFORMIN HCL500 MG PO (22:12)
[2018-11-24] MEDS ORDERED: MAXZIDE-25 MG1 EACH PO (22:15)
[2018-11-25] VITALS (13 sets, daily range): BP systolic 92–121; BP diastolic 40–65
--- NOTE | 2018-11-25 02:25 | NUR ---
PT ADMIT TO ROOM 201 AT 2044. ALERT ORIENTED. UP TO BR INDEPENDENTLY. TELEMETRY SHOWS SB 40S-50S. ONE EPISOID CP 09/09 GONE WITH 2 NTG TABS. NPO AT MN. TYLENOL GIVEN. PT SLEEPING QUIETLY.
[2018-11-25 05:49] LABS: CALCIUM 8.6 mg/dL (8.5-10.1); CREATININE 1.1 mg/dL (0.6-1.3); MAGNESIUM 1.7 mg/dL (1.8-2.4)
--- NOTE | 2018-11-25 11:53 | NUR ---
RECEIVED REPORT FROM ALE WALKER. ASSUMED CARE OF PT AROUND 07. PT A&O X4. VSS. COATER IN PLACE TRACING SR TO SB. AM ASSESSMENT AND VITALS COMPLETED CHARTED. IV TO RIGHT AC INTACT AND INFUSING IVF. PT DENIES PAIN OR DISCOMFORT AT THIS TIME. PT HAD LIGHT BREAKFAST AND IS NO NPO, WAITING FOR CARDIAC CATH THIS AFTERNOON. FAMILY AT BEDSIDE. PT DENIES CONCERNS AT THIS TIME. LOW FALL RISK PRECAUTIONS IN PLACE. CALL LIGHT IS WITHIN REACH. HOULRY ROUNDING PERFORMED. WCTM.
--- NOTE | 2018-11-25 14:21 | NUR ---
INITIAL ASSESSMENT: Pt evaluated for d/c planning needs. Reviewed chart. Pt was hospitalized at [facility] in July 2018. Pt lives in house with spouse and was independent with ADL's prior to admission to the hospital. Pt plans on returning home on d/c from hospital. Will remain available to assist as needed.
--- NOTE | 2018-11-25 18:46 | NUR ---
PT WENT DOWN TO SLEEP LAB TECHNOLOGIST AROUND 1415 AND RETURNED AROUND 1700. VSS CHARTED. RIGHT GROIN SITE OOZING BLOOD - DRESSING FULLY SATURATED UPON PT'S ARRIVAL TO TELE FLOOR - DRESSING CHANGED BY SLEEP LAB TECHNOLOGIST DENISE MOBLEY. SITE CONTINUED TO OOZE SOME, MANUAL PRESSURE APPLIED. NELSON NOTIFIED AND IN TO SEE PT - NO NEW ORDERS GIVEN. NO HEMATOMA PRESENT. PT ABLE TO EAT DINNER WITH ASSISTANCE FROM . AT BEDSIDE. PT ABLE TO VOID PER URINAL. PT DENIES PAIN OR DISCOMFORT. PT TO LIE FLAT IN BED UNTIL 2200 THIS EVENING. PT RESTING IN BED AT THIS TIME. CALL LIGHT IS WITHIN REACH. FALL PRECAUTIONS IN PLACE. CALL LIGHT IS WITHN REACH. MEDS PER EMAR. WCTM FOR DURATION OF SHIFT.
--- NOTE | 2018-11-26 02:34 | NUR ---
ASSUMED CARE OF PT AT 1900. PT IS ALERT AND ORIENTED. VSS. PERRLA. NO COMPLAINTS OF PAIN. PT WAS ON BED REST UNTIL 0. PT IS UP AD SERENA NOW. PT IS IN SINUS RYTHM ON THE TELEMETRY. PT IS RESTING COMFORTABLY IN BED. RESPIRATIONS ARE EVEN AND NONLABORED. WILL CONTINUE TO MONITOR PT.
[2018-11-26 04:00] VITALS: BP 108/63
[2018-11-26 05:10] LABS: HEMATOCRIT 37.5 % (42.0-52.0); HEMOGLOBIN 12.3 gm/dL (14.0-18.0); MCH 31.2 pg (26.0-34.0); MCHC 32.7 g/dL (28.0-37.0); MCV 95.4 fL (80.0-100.0); MPV 9.4 fl. (7.2-11.1); RBC 3.93 mil/uL (4.50-6.00); RDW-CV 16.2 % (10.5-14.5); WBC 8.3 thou/uL (4.0-11.0)
[2018-11-26 05:35] LABS: ALBUMIN 2.8 g/dL (3.4-5.0); ALKALINE PHOSPHATASE 76 U/L (46-116); ANION GAP 5 mmol/L (7-16); BUN 20 mg/dL (7-18); CALCIUM 8.1 mg/dL (8.5-10.1); CHLORIDE 107 mmol/L (98-107); CHOLESTEROL 117 mg/dL (<200); CO2 27 mmol/L (21-32); CREATININE 1.1 mg/dL (0.6-1.3); GLUCOSE 120 mg/dL (70-99); HDL CHOLESTEROL 52 mg/dL (>40); LDL CHOLESTEROL 56 mg/dL (<100); POTASSIUM 4.7 mmol/L (3.5-5.1); SGOT 18 U/L (15-37); SGPT 22 U/L (30-65); SODIUM 139 mmol/L (136-145); TC:HDL 2.3 Ratio (Not establshd); TOTAL BILIRUBIN 0.4 mg/dL (<0.1-1.0); TOTAL PROTEIN 5.8 g/dL (6.4-8.2); TRIGLYCERIDE 47 mg/dL (<150); TROPONIN-I LEVEL 0.14 ng/mL (<0.06); VLDL 9 mg/dL (<40)
[2018-11-26 05:36] LABS: SERUM ASSESSMENT CLEAR
--- NOTE | 2018-11-26 07:10 | NUR ---
CHNAGE OF SHIFT BESIDE REPORT GIVEN PATIENT SEEN AT BEDSIDE, UP IN CHAIR ASSUMED PATIUENT CARE
[2018-11-26 08:00] VITALS: BP 99/56
[2018-11-26 10:25] VITALS: BP 99/56
[2018-11-26 10:41] VITALS: BP 99/56
[2018-11-26 11:00] VITALS: BP 90/48
[2018-11-26] MEDS ORDERED: METFORMIN HCL500 MG PO (13:07)
--- NOTE | 2018-11-26 13:46 | EKG ---
[place] [address] ELECTROCARDIOGRAM REPORT Name: CLARI MARQUEZ Room: [address] ADM IN M.R.#: [id number] Admission: 11/24/18 Attend Phys: Manoj Gunderson MD Discharge: Date of : 47 Report #: [id number] THIS REPORT FOR: //name// [facility] ED Test Date: 2018-11-24 Test Time: 17:00:43 Pat Name: CLARI MARQUEZ Department: Room: 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[place] : 1945 Requested By: Adam Matt Order Number: [id number] MD: Juan Carlos Finch Measurements Intervals [place] Rate: 49 P: 30 PA: 186 QRS: 49 QRSD: 98 T: 21 QT: 459 QTc: 415 Interpretive Statements Sinus bradycardia Compared to ECG 08/13/2018 08:02:51 Sinus rate has decreased Myocardial infarct finding no longer present Electronically Signed On 11-26-2018 13:46:16 CDT by Juan Carlos Finch [email or web address] <ELECTRONICALLY SIGNED> By: Juan Carlos Finch MD, [facility] 11/26/18 1346 1700 1700 Juan Carlos Finch MD, [facility] /EPI
--- NOTE | 2018-11-26 14:03 | EKG ---
[place] [address] ELECTROCARDIOGRAM REPORT Name: CLARI MARQUEZ Room: [address] IN M.R.#: [id number] Admission: 11/24/18 Attend Phys: Manoj Gunderson MD Discharge: 11/26/18 Date of : 47 Report #: [id number] THIS REPORT FOR: //name// [facility] Test Date: 2018-11-26 Test Time: 08:33:46 Pat Name: CLARI MARQUEZ Department: Room: [address] Gender: M Environmental Health Physician: : 1945 Requested By: Juan Carlos Finch Order Number: [id number] Tanner MD: Juan Carlos Finch Measurements Intervals [place] Rate: 51 P: 19 SD: 174 QRS: 10 QRSD: 97 T: -1 QT: 462 QTc: 426 Interpretive Statements Sinus rhythm Inferior infarct, old Compared to ECG 08/13/2018 08:02:51 No significant changes Electronically Signed On 11-26-2018 14:03:47 CDT by Juan Carlos Finch [email or web address] <ELECTRONICALLY SIGNED> By: Juan Carlos Finch MD, [facility] 11/26/18 1403 0833 0833 Juan Carlos Finch MD, [facility] /EPI
--- NOTE | 2018-11-26 14:12 | NUR ---
PATIENT DISCHARGED TO HOME ALL DC OIRDERS REVIEWED, ACKNOWLEDGED, AND SIGNED COPIES GIVEN IV AND HEART MONITOR REMOVED PERSONAL BELONGINGS RETURNED ESCORTED OUT AMBULATORY TO [facility]
--- NOTE | 2018-11-26 15:15 | CARD ---
[address] [address] CARDIAC CATH REPORT Name: MARQUEZCLARI Room: [address]#: [id number] Admission: 11/24/18 Attend Phys: Manoj Gunderson MD Discharge: 11/26/18 Date of : 47 Report #: [id number] THIS REPORT FOR: //name// APPROVED REPORT Study performed: 11/25/2018 13:56:00 Patient Details Patient Status: In-Patient Room #: The patient is a 73 year-old male Event Personnel Juan Carlos Finch Pipe Bowl Paint Trimmer, Randi Shepherd RN Senior National Account Manager, Susan Mcclure RN Monitor, Arun Quintana SENIOR INFORMATION SECURITY CONSULTANT Scrub, Birgit Tillman RN Senior National Account Manager Procedures Performed Art Access - R femoral artery* Left Heart Cath w/or w/o Coronaries LHC DEMARIO Revasc Chronic Ttl Occl Single RCA Hemostasis w/ Angioseal Indication Unstable angina Risk Factors Hypercholesterolemia, Hypertension Previous Procedures/Diagnoses Previous PCI, Previous [place] Admission/Lab Medications/Medications given during procedure Aspirin, Thrombin Inhibitors, Platelet Aff. Inhib., Aspirin PO 162 mg, Effient PO 30 mg, Angiomax IV 12 ml, Heparin IV 7000 units Procedure Narrative The patient was brought electively to the Cardiac Catheterization Laboratory and was prepped and draped in a sterile manner. The right femoral was infiltrated with 2% Lidocaine subcutaneous anesthesia. A [place] 6 FR sheath was inserted into the . Coronary angiography was performed using coronary diagnostic catheters. The right coronary system was accessed and visualized with a 3DRC 6fr catheter. The left coronary system was accessed and visualized with a Diagnostic JL4 catheter. The left ventricle was accessed and visualized with a Diagnostic PIGTAIL catheter. Left ventricular/[place] [address] CARDIAC CATH REPORT Name: CLARI MARQUEZ Room: [address]#: [id number] Admission: 11/24/18 Attend Phys: Manoj Gunderson MD Discharge: 11/26/18 Date of : 47 Report #: [id number] assessed via catheter pullback. Left ventriculogram was performed in AYALA projection. Pre-demployment femoral angiogram was performed . Closure device was deployed with a 6 Fr Angioseal STS. The patient tolerated the procedure well and there were no complications associated with the procedure. There was no hematoma. Intraoperative Conscious Sedation Sedation start time: 14:45 Case end Time: 16:30 Fentanyl 75 mcg Versed 2 mg Fluoro Time: 47.5 minutes Dose: 4218 mGy Contrast Type and Amount: Visipaque 410 ml Diagnostic Cath Left Main 0% narrowing LAD 40% mid and 30% distal narrowings Circumflex 20% proximal narrowing Right Coronary 100% proximal chronic total occlusion of the right coronary artery with [id number]-lg-[id number] collaterals filling the distal right coronary artery in retrograde fashion back to the acute margin Left Ventriculography The left ventricle is normal in size with contractility. The left ventricular ejection fraction is estimated to be 60%. Left ventricular wall motion abnormalities are present. There is no mitral insufficiency. There is mild inferobasilar hypokinesis Hemodynamics The aortic pressure is 131/69 mmHg with a mean of 94 mmHg. The left ventricular pressure is 120/-1 mmHg with a mean of mmHg. The left ventricular end diastolic pressure is 14 mmHg. There was no gradient across the aortic valve upon pullback. PCI Technique Lesion Anticoagulation was achieved with Angiomax. Patient was preloaded with Angiomax IV 12 ml. Percutaneous coronary intervention was performed on the proximal right coronary artery. The lesion stenosis prior to intervention was 100% with DONAVAN 0 flow. A 6FR XBRCA Guide Catheter was used to engage the ostium. A IG: ProwaterFlex 180CM, 014 fielder xt Interventional Guidewire was used [place] [address] CARDIAC CATH REPORT Name: CLARI MARQUEZ Rodolfo Room: [address]#: [id number] Admission: 11/24/18 Attend Phys: Manoj Gunderson MD Discharge: 11/26/18 Date of : 47 Report #: [id number] BALLOON DILATION A Balloon catheter Mini Trek RX 1.2X8 was inserted and inflated up to 16.00atm for 13seconds. Additional Inflation: 16.00atm for 7seconds. Additional Inflation: 16.00atm for 8seconds. STENT DEPLOYMENT A drug-eluting stent Neel RX Stent 3.0X18mm was inserted and inflated up to 18.00atm for 11seconds. Additional Inflation: 20.00atm for 11seconds. Final angiography reveals 10 % stenosis with DONAVAN 3 flow. COMMENTS I was able recanalize the chronic total occlusion of the right coronary artery utilizing a fine cross microcatheter with a fielder xt wire advancing it to the distal right coronary artery and then advancing the fine cross catheter that point. I then exchanged the wire for a long BMW wire with multiple dilatations utilizing sequentially larger balloons and ultimately deploying 3 drug-eluting stents in the proximal and mid right coronary artery BALLOON DILATION A Balloon catheter was inserted and inflated up to 18.00atm for 10seconds. Additional Inflation: 14.00atm for 16seconds. Additional Inflation: 16.00atm for 11seconds. Mini Trek RX 3.0x12 inserted and inflated up to 18 marvel for 6 sec. Additional inflations of 18atm for 10 sec, 20 marvel for 10 sec. STENT DEPLOYMENT A drug-eluting stent [place] RX Stent 3.0X22mm was inserted and inflated up to 18.00atm for 16seconds. Additional Inflation: 22.00atm for 14seconds. Additional Stent Onxy RX Stent 3.0x12 inserted and inflated for 24 marvel for 12 sec. Conclusion #1 significant multivessel coronary artery disease characterized by the following: A 40% mid with 30% distal LAD narrowing B 20% proximal circumflex narrowing C1 100% chronic total occlusion of proximal right coronary artery with smbo-rs-[id number] collaterals filling the distal right coronary artery back to the acute margin in retrograde fashion [address] [address] CARDIAC CATH REPORT Name: CLARI MARQUEZ Room: [address] IN M.R.#: [id number] Admission: 11/24/18 Attend Phys: Manoj Gunderson MD Discharge: 11/26/18 Date of : 47 Report #: [id number] #2 normal global left ventricular systolic function estimate ejection fraction being 60% with subtle inferobasilar hypokinesis #3 normal left-sided hemodynamics study #4 successful recanalization of the chronic total occlusion of the proximal right coronary artery with deployment of 3 drug-eluting stents in the proximal to mid right coronary artery with 10% residual narrowing and DONAVAN-3 flow the distal vessel Recommendations Cardiac Risk Reduction Program Aggressive Medical Therapy Medications Administered Aspirin (any) Prasugrel <ELECTRONICALLY SIGNED> By: Juan Carlos Finch MD, FACC 11/26/18 1514 151 1514Juan Carlos Finch MD, FACC /INF
--- NOTE | 2018-11-26 15:37 | CON ---
[address] [address] CONSULTATION Name: CLARI MARQUEZ Room: [address] IN M.R.#: [id number] Admission: 11/24/18 Attend Phys: Manoj Gunderson MD Discharge: 11/26/18 Date of : 47 Report #: [id number] THIS REPORT FOR: //name// CC: Manoj Gant DATE OF SERVICE: 11/25/2018 CARDIOLOGY CONSULTATION HISTORY OF PRESENT ILLNESS: The patient is a very pleasant 73-year-old male with aggressive and complex coronary artery disease, status post multiple prior percutaneous coronary interventions, most recently to the mid right coronary artery in July of this year. Recently, he has noted recrudescence of symptoms typical of his prior ischemic syndrome. Yesterday, he had a protracted bout of pain and 2 episodes in total, responsive to nitroglycerin, but the last episode was more severe and he sought assistance in the Emergency Room. He was admitted with a diagnosis of unstable angina. He has been pain-free since admission. The patient's risk factors for coronary artery disease include hypertension and hyperlipidemia. MEDICATIONS: Cardiac medicines include aspirin 81 mg daily, losartan 50 mg daily, metformin 250 mg b.i.d., p.r.n. sublingual nitroglycerin, Effient 10 mg daily, simvastatin 80 mg daily, and Dyazide 1 tablet daily. Noncardiac medicines include Keflex, Proscar, chondroitin, ibuprofen, tamsulosin, and Lamisil. PAST MEDICAL HISTORY: Remarkable for hypertension, hypercholesterolemia, benign prostatic hypertrophy. SOCIAL HISTORY: The patient is . He is a nonsmoker. REVIEW OF SYSTEMS: Remarkable for the following positives: CARDIAC: The patient described chest pain with a crescendo-pattern prior to admission. UROLOGIC: The patient has a history of benign prostatic hypertrophy, responsive to Flomax. MUSCULOSKELETAL: He notes some modest chronic arthritic complaints. Remainder is unremarkable. PHYSICAL EXAMINATION: GENERAL: Demonstrates an elderly male, who is in no acute distress. VITAL SIGNS: Blood pressure 110/70, pulse rate 64, respirations 18 [place] [address] CONSULTATION Name: CLARI MARQUEZ Room: [address]#: [id number] Admission: 11/24/18 Attend Phys: Manoj Gunderson MD Discharge: 11/26/18 Date of : 47 Report #: [id number] NECK: Jugular venous pressure is normal. Carotids are 1 to 2+. CHEST: Exam is clear. CARDIOVASCULAR: Reveals normal first and second heart sounds without rubs, murmurs, or gallops. ABDOMEN: Soft and nontender. EXTREMITIES: Without edema, with intact peripheral pulses. SKIN: Reveals no petechia or rashes. NEUROLOGIC: The patient is awake, alert, and appropriate. PSYCHIATRIC: Reveals a normal affect. IMPRESSION: 1. Unstable angina. 2. Coronary artery disease. 3. Status post prior percutaneous coronary interventions. 4. Hypercholesterolemia. 5. Hypertension. 6. History of carotid stenoses. 7. Benign prostatic hypertrophy. RECOMMENDATIONS: Given the aforementioned clinical scenario with an unstable pattern of angina, I would recommend proceeding with cardiac catheterization to define current coronary anatomy and prospects for therapeutic modification. <ELECTRONICALLY SIGNED> By: Juan Carlos Finch MD, [facility] 11/26/18 1537 1141 0135Joawais Finch MD, FACC /nt
== END 2018-11-26 13:57 | disposition home or self-care (01) | DRG 247 ==
LOC: M.ERS 16:55 → M.2W 17:43 → M.TBA-ER 17:43 → M.2W 21:11
PROVIDERS: Family Medicine; Internal Medicine; ADMIT Internal Medicine
DX: I25.110 Atherosclerotic heart disease of native coronary artery with unstable angina pectoris (principal); I50.32 Chronic diastolic (congestive) heart failure; I13.0 Hypertensive heart and chronic kidney disease with heart failure and stage 1 through stage 4 chronic kidney disease, or unspecified chronic kidney disease; I25.10 Atherosclerotic heart disease of native coronary artery without angina pectoris; E78.5 Hyperlipidemia, unspecified; N18.2 Chronic kidney disease, stage 2 (mild); K21.9 Gastro-esophageal reflux disease without esophagitis; E78.00 Pure hypercholesterolemia, unspecified; N40.0 Benign prostatic hyperplasia without lower urinary tract symptoms; M19.90 Unspecified osteoarthritis, unspecified site; R00.1 Bradycardia, unspecified; I25.2 Old myocardial infarction; Z95.5 Presence of coronary angioplasty implant and graft; Z88.8 Allergy status to other drugs, medicaments and biological substances; Z87.891 Personal history of nicotine dependence; Z79.82 Long term (current) use of aspirin; Z79.899 Other long term (current) drug therapy

== ENCOUNTER 2018-12-28 10:53 | Observation (INO) | payer OTHER ==
[~2018-12-28] VITALS: Ht 172.7 cm; Wt 80.3 kg
--- NOTE | ~2018-12-28 | H ---
[address] [address] HISTORY AND PHYSICAL Name: CLARI MARQUEZ Room: [address] Sloan Ibarra#: [id number] Admission: 12/28/18 Attend Phys: Juan Carlos Finch MD, Discharge: 12/29/18 Date of : 47 Report #: [id number] THIS REPORT FOR: //name// Please refer to the History and Physical performed in the physician's office. By: [id number] Records Staff KATHERINE /ERIC
[~2018-12-28 10:53] MED LIST changes: +ADVIL MIGRAINE200 M1 PO
[2018-12-28] MEDS ORDERED: GLUCOSAMINE CO1 EACH PO (11:37)
[2018-12-28] MEDS ORDERED: GLUCOSAMINE HC500 MG PO (11:38)
[2018-12-28 11:41] VITALS: BP 139/70
[2018-12-28 11:43] LABS: HEMATOCRIT 38.8 % (42.0-52.0); HEMOGLOBIN 12.8 gm/dL (14.0-18.0); MCH 31.9 pg (26.0-34.0); MCV 96.5 fL (80.0-100.0); MPV 9.3 fl. (7.2-11.1); RBC 4.02 mil/uL (4.50-6.00); RDW-CV 15.1 % (10.5-14.5); WBC 6.4 thou/uL (4.0-11.0)
[2018-12-28 11:49] LABS: APTT 28.2 Seconds (25.0-31.3); INR 1.1; PROTIME 11.4 Seconds (9.20-11.50)
[2018-12-28 11:55] LABS: ANION GAP 9 mmol/L (7-16); BUN 27 mg/dL (7-18); CALCIUM 8.6 mg/dL (8.5-10.1); CHLORIDE 105 mmol/L (98-107); CO2 27 mmol/L (21-32); CREATININE 1.1 mg/dL (0.6-1.3); GLUCOSE 100 mg/dL (70-99); POTASSIUM 3.8 mmol/L (3.5-5.1); SODIUM 141 mmol/L (136-145)
[2018-12-28 11:57] LABS: ALBUMIN 3.3 g/dL (3.4-5.0); ALKALINE PHOSPHATASE 84 U/L (46-116); CHOLESTEROL 143 mg/dL (<200); HDL CHOLESTEROL 67 mg/dL (>40); LDL CHOLESTEROL 66 mg/dL (<100); SGOT 23 U/L (15-37); SGPT 26 U/L (30-65); TC:HDL 2.1 Ratio (Not establshd); TOTAL BILIRUBIN 0.3 mg/dL (<0.1-1.0); TOTAL PROTEIN 6.7 g/dL (6.4-8.2); TRIGLYCERIDE 52 mg/dL (<150); VLDL 10 mg/dL (<40)
[2018-12-28 11:58] LABS: SERUM ASSESSMENT Clear
--- NOTE | 2018-12-28 17:07 | EKG ---
[place] [address] ELECTROCARDIOGRAM REPORT Name: CLARI MARQUEZ Room: [address] M.R.#: [id number] Admission: 12/28/18 Attend Phys: Juan Carlos Finch MD, Discharge: Date of : 47 Report #: [id number] THIS REPORT FOR: //name// [facility] Test Date: 2018-12-28 Test Time: 11:34:11 Pat Name: CLARI MARQUEZ Department: Room: [facility] Gender: M Nurse'S Companion: [facility] : 1945 Requested By: Juan Carlos Finch Order Number: [id number] Tanner MD: Jovany Espinal Measurements Intervals [place] Rate: 50 P: 16 SC: 172 QRS: 20 QRSD: 96 T: 17 QT: 460 QTc: 420 Interpretive Statements Sinus rhythm Compared to ECG 11/26/2018 08:33:46 Myocardial infarct finding no longer present Electronically Signed On 12-28-2018 17:07:22 CDT by Jovany Espinal [email or web address] <ELECTRONICALLY SIGNED> By: Jovany Espinal MD, [facility] 12/28/18 1707 1134 1134 Jovany Espinal MD, FAC /EPI
--- NOTE | 2018-12-28 17:10 | EKG ---
[place] [address] ELECTROCARDIOGRAM REPORT Name: CLARI MARQUEZ Room: [address] M.R.#: [id number] Admission: 12/28/18 Attend Phys: Juan Carlos Finch MD, Discharge: Date of : 47 Report #: [id number] THIS REPORT FOR: //name// [facility] Test Date: 2018-12-28 Test Time: 15:38:04 Pat Name: CLARI MARUQEZ Department: Room: [facility] Gender: M Back Maker: BRANDYN : 1945 Requested By: Juan Carlos Finch Order Number: [id number] Tanner MD: Jovany Espinal Measurements Intervals [place] Rate: 44 P: 29 NV: 200 QRS: 18 QRSD: 96 T: 0 QT: 477 QTc: 408 Interpretive Statements Sinus bradycardia Inferior infarct, old Compared to ECG 11/26/2018 08:33:46 Sinus rhythm no longer present Myocardial infarct finding still present Electronically Signed On 12-28-2018 17:10:25 CDT by Jovany Espinal [email or web address] <ELECTRONICALLY SIGNED> By: Jovany Espinal MD, [facility] 12/28/18 1710 1538 1538 Jovany Espinal MD, [facility] /EPI
[2018-12-28 18:19] VITALS: BP 139/70
[2018-12-28 19:50] VITALS: BP 103/43
[2018-12-28 21:55] VITALS: BP 101/56
[2018-12-28 22:45] VITALS: BP 86/48
[2018-12-28 23:00] VITALS: BP 90/56
[2018-12-29 00:27] VITALS: BP 91/45
[2018-12-29 01:56] LABS: HEMATOCRIT 34.5 % (42.0-52.0); HEMOGLOBIN 11.5 gm/dL (14.0-18.0); MCH 31.9 pg (26.0-34.0); MCHC 33.4 g/dL (28.0-37.0); MCV 95.6 fL (80.0-100.0); MPV 8.6 fl. (7.2-11.1); RBC 3.61 mil/uL (4.50-6.00); WBC 9.7 thou/uL (4.0-11.0)
[2018-12-29 02:14] LABS: ALBUMIN 2.9 g/dL (3.4-5.0); CREATININE 1.1 mg/dL (0.6-1.3); TOTAL BILIRUBIN 0.3 mg/dL (<0.1-1.0); TOTAL PROTEIN 5.8 g/dL (6.4-8.2); TROPONIN-I LEVEL 0.11 ng/mL (<0.06)
--- NOTE | 2018-12-29 03:47 | NUR ---
AT ABOUT 2155, PT BEGAN HAVING CHEST PAIN. PT REPORTED PAIN IN CHEST, JAW AND RADIATING TO LEFT ARM. PT RECIEVED NITRO X2 WITH LITTLE IMPROVEMENT. DR CALL NOTIFIED. PT WAS GIVEN 2MG OF MORPHINE. PT ORDERED TO GET LOPRESSOR BUT HIS BLOOD PRESSURE WAS VERY LOW AFTER RECIEVING MORPHINE AND NITRO. PT REPORTS THAT HE IS NO LONGER HAVING CHEST PAIN AT THIS TIME.
[2018-12-29 04:09] VITALS: BP 107/49
[2018-12-29 07:47] VITALS: BP 139/70
[2018-12-29 08:09] VITALS: BP 117/66
--- NOTE | 2018-12-29 10:06 | NUR ---
ASSUMED CARE OF PT THIS AM AROUND 07- QUILT STUFFER IN PLACE ORDERED, TRACING SB- UPON ASSESSMENT PT NOTED TO BE RESTING ON SIDE OF BED, AT SIDE- PT A&O X4- CONTINENT OF B/B- UP AD-SERENA IN ROOM, STEADY GAIT NOTED- LCTA, RESP EVEN AND UN-LABORED- VSS, O2 SAT 97% ON RA- ABD SOFT/ROUND/NON-TENDER, BS X4 QUADS- LAST BM REPORTED 12/28/18- IV NOTED TO LEFT AC NOTED, IVF INFUSSING PRESCRIBED- RIGHT WRIST DRESSING INTACT WITH NO VISIBLE DRAINAGE NOTED-GOOD PO INTAKE NOTED THIS AM WITH BREAKFAST- PT DENIES ANY C/O PAIN THIS AM- CALL LIGHT AND PERSONAL BELONGINGS WITH IN REACH- HOURLY ROUNDS IN PLACE R/T SAFETY/NEEDS- ALL NEEDS MET AT THIS TIME-WCTM
--- NOTE | 2018-12-29 11:15 | NUR ---
ORDERS NOTED FOR OKAY FOR PT TO BE D/C'D TO HOME THIS SHIFT- REFERALL SENT TO THORASIC SURGEON DR.JOHN MEDINA PER CARDIOLOGY FOR FOLLOW UP PER PT WISHES PRIOR TO D/C AND PT UPDATED INDICATED- IV TO LEFT AC D/C'D ALONG WITH MANAGER BOOKS PRIOR TO D/C- D/C EDUCATION/TEACHING/NEEDED FOLLOW UP'S COMMUNICATED TO PT AND PRIOR TO D/C WITH VERBAL UNDERSTANDING RECEIEVIED- ALL QUESTIONS AND CONCERNS ADDRESSED PRIOR TO D/C- BELONGINGS PACKED AND ACCOUNTED FOR PER PT AND PRIOR TO D/C- PT ESCORTED WITH BELONGINGS PER TECH VIA W/C TO 'S VEHICLE AT 1118- NO PROBLEMS TO NOTE AT TIME OF D/C
--- NOTE | 2018-12-29 11:42 | CARD ---
[address] [address] CARDIAC CATH REPORT Name: CLARI MARQUEZ Room: [address] Sloan Ibarra#: [id number] Admission: 12/28/18 Attend Phys: Juan Carlos Finch MD, Discharge: 12/29/18 Date of : 47 Report #: [id number] THIS REPORT FOR: //name// APPROVED REPORT Study performed: 12/28/2018 12:49:40 Patient Details The patient is a 73 year-old male Event Personnel Juan Carlos Finch Broodmare Foreman, Susan Mcclure RN Resident Care Spec, Miguelito Rodriguez (Baltazar) Raul Barahona Jessie RTR Monitor, Arun Quintana IRRIGATION SYSTEM INSTALLER Monitor Procedures Performed Left Heart Cath w/or w/o Coronaries [id number] [facility] [address] Place w/wo Plasty Single RCA [id number] , Left Ventriculogram Indication Unstable angina Risk Factors Hypercholesterolemia, Hypertension Previous Procedures/Diagnoses Previous PCI, Previous [place] Admission/Lab Medications/Medications given during procedure Angiomax bolus and infusion Procedure Narrative The patient was brought electively to the Cardiac Catheterization Laboratory and was prepped and draped in a sterile manner. The right wrist was infiltrated with 2% Lidocaine subcutaneous anesthesia. A [place] 6 FR sheath was inserted into the RRA. Coronary angiography was performed using coronary diagnostic catheters. The right coronary system was accessed and visualized with a DCR: [place] 4.0 5fr catheter. The left coronary system was accessed and visualized with a DCR: [place] 4.0 5fr catheter. The left ventricle was accessed and visualized with a ANGLED PIG 5F catheter. Left ventricular/Aortic Valve gradient assessed via catheter pullback. Left ventriculogram was performed in AYALA projection. Closure device was deployed with a Fr VASC-BAND REG 24CM. The patient tolerated the procedure well and there were no complications associated [place] [address] CARDIAC CATH REPORT Name: CLARI MARQUEZ BORA Room: [address] M.R.#: [id number] Admission: 12/28/18 Attend Phys: Juan Carlos Finch MD, Discharge: 12/29/18 Date of : 47 Report #: [id number] no hematoma. Intraoperative Conscious Sedation Sedation start time: 1328 Case end Time: 1428 Fentanyl 50 mcg Versed 3 mg Dose: 2898 mGy Contrast Type and Amount: Visipaque 300 ml Coronary Angiography The patient's coronary anatomy is right dominant. Diagnostic Cath Left Main 0% narrowing LAD 30% proximal with 40% mid LAD narrowing Circumflex 30% proximal circumflex narrowing Right Coronary Dominant vessel with stents throughout the proximal and midportion of the vessel with 90% mid right coronary in-stent restenosis Left Ventriculography The left ventricle is normal in size with normal contractility. The left ventricular ejection fraction is estimated to be 60%. Left ventricular wall motion abnormalities are not present. There is no mitral insufficiency. Hemodynamics The aortic pressure is 111/54 mmHg with a mean of 80 mmHg. The left ventricular pressure is 115/5 mmHg with a mean of mmHg. The left ventricular end diastolic pressure is 14 mmHg. There was no gradient across the aortic valve upon pullback. PCI Technique Lesion Anticoagulation was achieved with Heparin. Patient was preloaded with Heparin IV 4000 unitsAngiomax IV 12 ml. Percutaneous coronary intervention was performed on the mid right coronary artery---- Right coronary artery segments: ---. The lesion stenosis prior to intervention was 90% with DONAVAN 3 flow. A 6F IM 100CM Guide Catheter was used to engage the RIGHT ostium. A IG: BMW 190cm Interventional Guidewire was used to cross the lesion. BALLOON DILATION A Balloon catheter Trek RX 2.25 X 12 was inserted and inflated up to 20.00atm for 5seconds. Additional Inflation: 15.00atm for 8seconds. NC TREK 2.75 X 8 BALLOON INSERTED/ INFLATED 18 CAROLINE/ 9 SEC AND 24 CAROLINE/ [place] [address] CARDIAC CATH REPORT Name: CLARI MARQUEZ Room: [address] Sloan M.RRao#: [id number] Admission: 12/28/18 Attend Phys: Juan Carlos Finch MD, Discharge: 12/29/18 Date of : 47 Report #: [id number] SEC. NC TREK 3.0 X 12 BALLOON INSERTED/ INFLATED 18 CAROLINE/ 9 SEC AND 22 CAROLINE/ 13 SEC. STENT DEPLOYMENT A drug-eluting stent Neel RX Stent 2.58V56ux was inserted and inflated up to 20.00atm for 5seconds. Additional Inflation: 24.00atm for 14seconds. POST STENT DEPLOYMENT BALLOON DILATION A Balloon catheter [place] Trek RX 3.0 X 8 was inserted and inflated up to 20.00atm for 10seconds. Additional Inflation: 24.00atm for 10seconds. Final angiography reveals 20 % stenosis with DONAVAN 3 flow. Conclusion #1 significant coronary artery disease characterized by the following: A large dominant right coronary artery with stents from the ostium to the acute margin with 90% mid right coronary in-stent restenosis B 30% proximal 40% mid LAD narrowing C nondominant circumflex with 30% proximal narrowing #2 normal left ventricular size and systolic function, estimate ejection fraction being 60% #3 normal left-sided hemodynamic study #4 successful percutaneous coronary intervention with deployment of drug-eluting stent at site of 90% mid right coronary in-stent restenosis with 20% residual narrowing and DONAVAN-3 flow the distal vessel Recommendations Cardiac Risk Reduction Program Aggressive Medical Therapy Medications Administered Aspirin ([place] [address] CARDIAC CATH REPORT Name: CLARI MARQUEZ Room: [address] Sloan Ibarra#: [id number] Admission: 12/28/18 Attend Phys: Juan Carlos Finch MD, Discharge: 12/29/18 Date of : 47 Report #: [id number] Diagnostic Cath Approved by: Juan Carlos Finch MD Date/Time: 12/29/2018 11:41:06 <ELECTRONICALLY SIGNED> By: Juan Carlos Finch MD, [facility] 12/29/18 1142 1142 1142Joawais Finch MD, [facility] /INF
--- NOTE | 2018-12-29 13:49 | NUR ---
Nutrition: Consult for "Pt/family request." Pt discharged before I was able to visit with him today. Called pt's call phoone recorded in his chart ([phone]) and left message for him to call me back with any nutrition questions. Left my direct extension on his voicemail. RD available for phone consult or to send info via email, if pt desires.
--- NOTE | 2018-12-29 18:31 | EKG ---
[place] [address] ELECTROCARDIOGRAM REPORT Name: CLARI MARQUEZ Room: [address] M.R.#: [id number] Admission: 12/28/18 Attend Phys: Juan Carlos Finch MD, Discharge: 12/29/18 Date of : 47 Report #: [id number] THIS REPORT FOR: //name// [facility] Test Date: 2018-12-28 Test Time: 21:55:25 Pat Name: CLARI MARQUEZ Department: Room: [address] Gender: M Bead Filler: MUNIRA : 1945 Requested By: Juan Carlos Finch Order Number: [id number] Tanner MD: Jovany Espinal Measurements Intervals [place] Rate: 74 P: 34 ME: 177 QRS: 3 QRSD: 93 T: -2 QT: 407 QTc: 452 Interpretive Statements Sinus rhythm Inferior infarct, old Compared to ECG 12/28/2018 15:38:04 Sinus bradycardia no longer present Myocardial infarct finding still present Electronically Signed On 12-29-2018 18:31:28 CDT by Jovany Espinal [email or web address] <ELECTRONICALLY SIGNED> By: Jovany Espinal MD, FACC 12/29/18 1831 2155 2155 Jovany Espinal MD, FAC /EPI
--- NOTE | 2018-12-29 18:33 | EKG ---
[place] [address] ELECTROCARDIOGRAM REPORT Name: CLARI MARQUEZ Room: [address] M.R.#: [id number] Admission: 12/28/18 Attend Phys: Juan Carlos Finch MD, Discharge: 12/29/18 Date of : 47 Report #: [id number] THIS REPORT FOR: //name// [facility] Test Date: 2018-12-29 Test Time: 08:19:21 Pat Name: CLARI MARQUEZ Department: Room: [facility] Gender: M Eco Industrial Development Consultant: : 1945 Requested By: Juan Carlos Finch Order Number: [id number] Reading MD: Jovany Espinal Measurements Intervals [place] Rate: 48 P: 18 IA: 172 QRS: 14 QRSD: 96 T: 8 QT: 475 QTc: 425 Interpretive Statements Sinus bradycardia Inferior infarct, old Compared to ECG 12/28/2018 15:38:04 No significant changes Electronically Signed On 12-29-2018 18:33:37 CDT by Jovany Espinal [email or web address] <ELECTRONICALLY SIGNED> By: Jovany Espinal MD, [facility] 12/29/18 1833 8 8 Jovany Espinal MD, [facility] /EPI
--- NOTE | 2018-12-30 16:51 | D ---
[address] [address] DISCHARGE SUMMARY Name: CLARI MARQUEZ Room: [address] [place] bIarra#: [id number] Admission: 12/28/18 Attend Phys: Juan Carlos Finch MD, Discharge: 12/29/18 Date of : 47 Report #: [id number] THIS REPORT FOR: //name// CC: Janeth Finch DATE OF SERVICE: 12/29/2018 FINAL DISCHARGE DIAGNOSES: 1. Unstable angina. 2. Coronary artery disease. 3. Status post percutaneous coronary intervention of the right coronary artery. 4. Type 2 diabetes. 5. Hypertension. 6. Hypercholesterolemia. PROCEDURES: On 12/28/2018 -- left heart catheterization, left ventriculography, selective coronary arteriography and percutaneous coronary intervention with deployment of drug-eluting stent in the mid right coronary artery. HISTORY OF PRESENT ILLNESS: The patient is a 73-year-old male with complex coronary artery disease, status post multiple prior percutaneous coronary interventions, predominantly to the right coronary artery. He presented with increasing frequency of episodes of chest discomfort radiating up into the jaw compatible with angina following an unstable pattern. He has underlying diabetes, hypercholesterolemia, and hypertension. In this context, I performed cardiac catheterization on 12/28/2018 which revealed 30% proximal, 40% mid left anterior descending narrowing, 30% proximal circumflex narrowing, 90% mid right coronary in-stent restenosis. There were stents deployed from the ostium to the right coronary artery just beyond the acute margin. I proceeded with percutaneous coronary intervention of the right coronary artery, deploying one 2.25 x 12 mm Nathalie drug-eluting stent and post-dilating with a 3.0 x 8 mm NC Trek inflated to 24 atmospheres with 20% residual narrowing and DONAVAN 3 flow of the distal vessel. The patient did well post-procedurally, though he did have one brief episode of angina, responsive to sublingual nitroglycerin x1. He was discharged to home on 12/29/2018 on the following medications: Aspirin 81 mg daily, cephalexin 500 mg daily, finasteride or Proscar 5 mg daily, glucosamine 2 tablets daily, metformin 250 mg b.i.d. to be resumed 12/30/2018, Effient 10 mg daily with 30 mg donny-procedural dose, simvastatin 40 mg at bedtime, tamsulosin 0.4 mg b.i.d., terbinafine 250 [place] [address] DISCHARGE SUMMARY Name: CLARI MARQUEZ Room: [address] MRaoR.#: [id number] Admission: 12/28/18 Attend Phys: Juan Carlos Finch MD, Discharge: 12/29/18 Date of : 47 Report #: [id number] triamterene/hydrochlorothiazide one tablet daily. The patient is scheduled to return to see me on 01/19/2019. Thus, he is discharged to home in stable condition on the aforementioned medications with followup as iterated above. <ELECTRONICALLY SIGNED> By: Juan Carlos Finch MD, [facility] 12/30/18 1651 1255 [id number] Carlos Finch MD, FAC /nt
== END 2018-12-29 11:18 | disposition home or self-care (01) ==
LOC: M.CL 10:53 → M.TBA-CV 14:58 → M.2W 14:58
PROVIDERS: ADMIT Internal Medicine
DX: I25.110 Atherosclerotic heart disease of native coronary artery with unstable angina pectoris (principal); E11.9 Type 2 diabetes mellitus without complications; E78.00 Pure hypercholesterolemia, unspecified; Z79.82 Long term (current) use of aspirin; Z79.84 Long term (current) use of oral hypoglycemic drugs; Z79.899 Other long term (current) drug therapy

== ENCOUNTER 2020-02-21 09:15 | Observation (INO) | payer MEDICARE ==
[2020-02-21] VITALS (20 sets, daily range): BP systolic 90–139; BP diastolic 48–70
--- NOTE | ~2020-02-21 | H ---
[address] [address] HISTORY AND PHYSICAL Name: CLARI MARQUEZ BORA Room: [address] [place] MRaoRRao#: [id number] Admission: 02/21/20 Attend Phys: Juan Carlos Finch MD, Discharge: 02/22/20 Date of : 46 Report #: [id number] THIS REPORT FOR: //name// cc: Janeth Kimbrough MD, Cora A. MD ~ Please refer to the History and Physical performed in the physician's office. By: 0639Medical Records Staff [facility] /ERIC
[~2020-02-21 09:15] MED LIST changes: +CHILDREN'S ASPI81 M1 PO; +FERREX 150 PLU1 EAC1 PO; +GLUCOSAMINE CO1 EACH PO; +TERBINAFINE HC250 MG
[2020-02-21 10:08] LABS: HEMATOCRIT 41.9 % (42.0-52.0); HEMOGLOBIN 14.5 gm/dL (14.0-18.0); MCH 34.2 pg (26.0-34.0); MCHC 34.5 g/dL (28.0-37.0); MPV 8.9 fl. (7.2-11.1); RBC 4.23 mil/uL (4.50-6.00); RDW-CV 14.2 % (10.5-14.5); WBC 6.8 thou/uL (4.0-11.0)
[2020-02-21 10:18] LABS: ANION GAP 6 mmol/L (7-16); BUN 32 mg/dL (7-18); CALCIUM 8.6 mg/dL (8.5-10.1); CHLORIDE 103 mmol/L (98-107); CO2 29 mmol/L (21-32); CREATININE 1.4 mg/dL (0.6-1.3); GLUCOSE 108 mg/dL (70-99); SODIUM 138 mmol/L (136-145)
[2020-02-21 10:23] LABS: ALBUMIN 3.5 g/dL (3.4-5.0); ALKALINE PHOSPHATASE 87 U/L (46-116); CHOLESTEROL 146 mg/dL (<200); HDL CHOLESTEROL 61 mg/dL (>40); LDL CHOLESTEROL 73 mg/dL (<100); SERUM ASSESSMENT Clear; SGOT 29 U/L (15-37); SGPT 30 U/L (30-65); TC:HDL 2.4 Ratio (Not establshd); TOTAL BILIRUBIN 0.4 mg/dL (<0.1-1.0); TOTAL PROTEIN 6.8 g/dL (6.4-8.2); TRIGLYCERIDE 64 mg/dL (<150); VLDL 13 mg/dL (<40)
[2020-02-21] MEDS ORDERED: TRIAMTERENE/HCT1 CA1 PO (10:33)
[2020-02-21] MEDS ORDERED: IBUPROFEN200 M1 PO (10:35)
[2020-02-21] MEDS ORDERED: NITROSTAT0.4 M1 PO (10:37)
[2020-02-21] MEDS ORDERED: KEFLEX500 M2 PO (10:38)
[2020-02-21] MEDS ORDERED: MITIGARE0.6 MG PO (10:38)
[2020-02-21] MEDS ORDERED: ISOSORBIDE MONO30 M1 PO (10:40)
[2020-02-21 10:41] LABS: APTT 27.8 Seconds (25.0-31.3); INR 1.1; PROTIME 11.4 Seconds (9.20-11.50)
--- NOTE | 2020-02-21 15:06 | EKG ---
[place] [address] ELECTROCARDIOGRAM REPORT Name: CLARI MARQUEZ Room: [address] M.R.#: [id number] Admission: 02/21/20 Attend Phys: Clau Schmidt Discharge: Date of : 47 Date of Service: 02/21/20 1046 Report #: [id number] THIS REPORT FOR: //name// [facility] Test Date: 2020-02-21 Test Time: 10:46:03 Pat Name: CLARI MARQUEZ Department: Room: [facility] Gender: M Anglesmith Helper: FRANCISCA : 1945 Requested By: Juan Carlos Finch Order Number: [id number] Tanner MD: Juan Carlos Finch Measurements Intervals [place] Rate: 56 P: 48 HI: 197 QRS: 25 QRSD: 94 T: 55 QT: 443 QTc: 428 Interpretive Statements Sinus rhythm Compared to ECG 12/29/2018 08:19:21 Sinus bradycardia no longer present Myocardial infarct finding no longer present Electronically Signed On 02-21-2020 15:06:22 CDT by Juan Carlos Finch [email or web address] <ELECTRONICALLY SIGNED> By: Juan Carlos Finch MD, [facility] 02/21/20 1506 1046 1046 Juan Carlos Finch MD, [facility] /EPI
--- NOTE | 2020-02-21 15:07 | EKG ---
[place] [address] ELECTROCARDIOGRAM REPORT Name: CLARI MARQUEZ Room: [address] M.R.#: [id number] Admission: 02/21/20 Attend Phys: Clau Schmidt Discharge: Date of : 47 Date of Service: 02/21/20 1351 Report #: [id number] THIS REPORT FOR: //name// [facility] Test Date: 2020-02-21 Test Time: 13:51:12 Pat Name: CLARI MARQUEZ Department: Room: [place] [address] Gender: M House Principal: : 1945 Requested By: Juan Carlos Finch Order Number: [id number] Tanner MD: Juan Carlos Finch Measurements Intervals [place] Rate: 58 P: 45 WA: 194 QRS: 25 QRSD: 101 T: 22 QT: 446 QTc: 439 Interpretive Statements Sinus rhythm Compared to ECG 02/21/2020 10:46:03 No significant changes Electronically Signed On 02-21-2020 15:07:33 CDT by Juan Carlos Finch [email or web address] <ELECTRONICALLY SIGNED> By: Juan Carlos Finch MD, [facility] 02/21/20 1507 1351 1351 Juan Carlos Finch MD, [facility] /EPI
--- NOTE | 2020-02-21 16:43 | CARD ---
[address] [address] CARDIAC CATH REPORT Name: CLARI MARQUEZ Room: [address] [place] MCorrine#: [id number] Admission: 02/21/20 Attend Phys: Juan Carlos Finch MD, Discharge: Date of : 47 Report #: [id number] THIS REPORT FOR: //name// cc: Janeth Kimbrough MD, Cora A. MD ~ APPROVED REPORT Study performed: 02/21/2020 11:27:13 Patient Details Patient Status: Out-Patient Room #: The patient is a 75 year-old male Event Personnel Rodolfo Hernandez RN RN, Em Carter RTR Stef Barahona John Unit Aide, Arun Quintana ASSISTANT TEACHER PRIMARY Monitor, Alon Valentine RTR Monitor Procedures Performed Left Heart Cath Coronaries, Bypass Grafts [id number] LHCCORCABG DEMARIO Place w/wo Plasty Single LAD [id number] Hemostasis w/ Mynx; atherotomy/atherectomy and stenting of the proximal and mid LAD Indication Unstable angina Risk Factors Hypercholesterolemia, Hypertension Previous Procedures/Diagnoses Previous CABGPrevious PCI Admission/Lab Medications/Medications given during procedure Lidocaine Subcut 20 ml, Fentanyl IV 25 mcg, Midazolam (Versed) IV 2 mgl, Angiomax IV 13.5 mg per kg, Lidocaine Subcut 31.45 ml, Midazolam (Versed) IV 1 mg, Effient PO 60 mg, Aspirin PO 162 mg Procedure Narrative The patient was brought electively to the Cardiac Catheterization Laboratory and was prepped and draped in a sterile manner. The right femoral was infiltrated with 2% Lidocaine subcutaneous anesthesia. A [place] 6 FR sheath was inserted into the right femoral artery. Coronary angiography was performed [place] [address] CARDIAC CATH REPORT Name: CLARI MARQUEZ Room: [address]#: [id number] Admission: 02/21/20 Attend Phys: Juan Carlos Finch MD, Discharge: Date of : 46 Report #: [id number] catheters. The right coronary system was accessed and visualized with a JR4 6fr Diagnostic catheter. The left coronary system was accessed and visualized with a JL4 6fr Diagnostic catheter. The left ventricle was accessed and visualized with a Angled Pig 5fr Diagnostic catheter. Left ventricular/Aortic Valve gradient assessed via catheter pullback. Pre-demployment femoral angiogram was performed . Closure device was deployed with a 6 Fr Mynx. The patient tolerated the procedure well and there were no complications associated with the procedure. There was no hematoma. Intraoperative Conscious Sedation Sedation start time: 1156 Case end Time: 1309 Fentanyl 50 mcg Versed 3 mg Fluoro Time: 23.4 minutes Dose: DAP 005243 cGycm2 3455.64 mGy Contrast Type and Amount: Visipaque 480 ml Ione Artery Percent Stenosis 1. Patent PHELPS graft to the apical LAD with good antegrade filling distally and modest retrograde filling 2 widely patent saphenous vein graft to the distal right coronary artery Diagnostic Cath Left Main 0% narrowing LAD 90% proximal and 75% mid LAD stenosis with reciprocal filling distally reflecting a patent PHELPS graft Circumflex 30% proximal and mid vessel narrowing Right Coronary Dominant vessel which is totally occluded proximally Left Ventriculography The left ventricle is normal in size with contractility. The left ventricular ejection fraction is estimated to be 55-60%. Left ventricular wall motion abnormalities are present. There is no mitral insufficiency. Mid anterior hypokinesis is noted Hemodynamics The aortic pressure is 82/44 mmHg with a mean of 56 mmHg. The left ventricular pressure is 96/2 mmHg with a mean of mmHg. The left ventricular end diastolic pressure is 7 mmHg. [place] [address] CARDIAC CATH REPORT Name: CLARI MARQUEZ Room: [address]#: [id number] Admission: 02/21/20 Attend Phys: Juan Carlos Finch MD, Discharge: Date of : 47 Report #: [id number] Percutaneous coronary intervention was performed on the Proximal left anterior descending artery segment. The lesion stenosis prior to intervention was 90% with DONAVAN 3 flow. A 6F XB LAD 3.5 Guide Catheter was used to engage the Left ostium. A BMW 190cm Interventional Guidewire was used to cross the lesion. BALLOON DILATION A Balloon catheter Euphora SC 2.5x10 was inserted and inflated up to 14.00atm for 20seconds. Additional Inflation: 17.00atm for 16seconds. Additional Inflation: 10.00atm for 12seconds. A Cutting Balloon Catheter AngioSculpt PTCA 2.5 X 10 was inserted and inflated up to 10.00 marvel for 8 seconds. Additional Inflation: 16.00 marvel for 10 seconds. Additional Inflation: 18.00 marvel for 14 seconds. Additional Inflation: 20atm for 14 seconds. Additonal Inflation: 17.00 marvel for 8 seconds. Additional Inflation: 22.00 marvel for 17 seconds. STENT DEPLOYMENT A drug-eluting stent Neel RX Stent 2.00N91ui was inserted and inflated up to 10.00atm for 21seconds. Additional Inflation: 11.00atm for 16seconds. A Drug Eluting Stent Neel RX Stent 2.75X 18mm was inserted and inflated up to 16.00 marvel for 22 seconds. Additional Inflation: 18.00 marvel for 10 seconds. Additional Inflation: 19.00 marvel for 8 seconds. Final angiography reveals 0 % stenosis with DONAVAN 3 flow. PCI Technique Lesion 2 Percutaneous coronary intervention was performed on the Mid LAD. The lesion stenosis prior to intervention was 75% with DONAVAN 3 flow. Balloon Dilation A Balloon catheter Euphora SC 2.5x10 was inserted and inflated up to 10atm for 12seconds. 2.5 x 10 angiosculpt inflated to 10 marvel Stent Deployment A drug-eluting stent Dumas RX Stent 2.5X12mm,2.5x8 was inserted and inflated up to 14atm for 15seconds. Final angiography reveals 10 % stenosis with DONAVAN 3 flow. PCI Technique Lesion 3 Percutaneous Coronary Intervention was performed on the mid left anterior descending artery segment. Conclusion [address] [place] [address] CARDIAC CATH REPORT Name: CLARI MARQUEZ Room: [address] [place] Miller.#: [id number] Admission: 02/21/20 Attend Phys: Juan Carlos Finch MD, Discharge: Date of : 47 Report #: [id number] 1. Significant coronary arteries characterized by the following: A 90% proximal LAD in-stent restenosis with 75% mid vessel narrowing B 30% proximal and mid circumflex narrowing C 100% proximal right coronary occlusion 2. Graft study characterized by the following: A widely patent PHELPS graft to the apical LAD with good filling in antegrade fashion and modest retrograde filling B widely patent saphenous vein graft to the distal right coronary artery 3. Left left ventricular ejection fraction of 55 - 60% with mid anterior hypokinesis noted 4. Normal left-sided hemodynamic study 5. Successful PCI with atherotomy/atherectomy and stenting of the 90% proximal and 75% mid LAD stenosis with 0 and 10% residual narrowings following stent deployment and DONAVAN-3 flow to the distal vessel Recommendations Cardiac Risk Reduction Program Aggressive Medical Therapy Medications Administered Aspirin (any) Prasugrel Diagnostic Cath Approved by: Juan Carlos Finch MD Date/Time: 02/21/2020 16:38:57 <ELECTRONICALLY SIGNED> By: Juan Carlos Finch MD, [facility] 02/21/201641 41 41Juan Carlos Finch MD, FAC /INF
[2020-02-22 00:46] VITALS: BP 108/60
[2020-02-22 04:15] VITALS: BP 112/64
--- NOTE | 2020-02-22 04:51 | NUR ---
ASSUMED PT CARE AT 1900. PT IS AWAKE AND ORIENTED X4. PT IS TRACING SR ON THE RETICLE PRINTER. PT DENIES PAIN/DISCOMFORT. NO DESATURATIONS NOTED ON ROOM AIR. POST CARDIAC CATH SITE IN RIGHT GROIN DRESSING CLEAN INTACT AND DRY, NO HEMATOMA/BLEEDING NOTED.NO ACUTE CHANGES THROUGHOUT THIS SHIFT. CALL LIGHT WITHIN REACH. HOURLY ROUNDING DONE FOR PT SAFETY. FALL PRECAUTIONS IN PLACE.
[2020-02-22 05:05] LABS: HEMATOCRIT 38.8 % (42.0-52.0); HEMOGLOBIN 13.6 gm/dL (14.0-18.0); MCH 34.1 pg (26.0-34.0); MCHC 35.1 g/dL (28.0-37.0); MCV 97.2 fL (80.0-100.0); MPV 9.4 fl. (7.2-11.1); RBC 3.99 mil/uL (4.50-6.00); WBC 7.6 thou/uL (4.0-11.0)
[2020-02-22 05:21] LABS: ALBUMIN 2.9 g/dL (3.4-5.0); CREATININE 1.3 mg/dL (0.6-1.3); POTASSIUM 3.5 mmol/L (3.5-5.1); TOTAL BILIRUBIN 0.4 mg/dL (<0.1-1.0); TOTAL PROTEIN 5.9 g/dL (6.4-8.2); TROPONIN-I LEVEL 0.2 ng/mL (<0.06)
[2020-02-22 08:00] VITALS: BP 128/84
--- NOTE | 2020-02-22 08:00 | NUR ---
ASSUMED CARE OF PATIENT THIS MORNING FROM NIGHT NURSE. PT IS DOING WELL WITH NO CO OF PAIN OR NAUSEA. PT WAS EDUCATED ON POC, FALL SAFETY AND USING THE CALL LIGHT. BED IN LOWEST POSITION, CALL LIGHT IN REACH. WILL CONTINUE TO MONITOR.
[2020-02-22] MEDS ORDERED: EFFIENT10 MG PO (09:10)
[2020-02-22 09:23] VITALS: BP 112/64
[2020-02-22 09:46] VITALS: BP 112/64
[2020-02-22 10:09] VITALS: BP 112/64
--- NOTE | 2020-02-22 10:55 | NUR ---
PT WAS DISCHARGED HOME WITH A LIST OF HOME MEDICATIONS AND DISCHARGE INSTRUCTIONS.
--- NOTE | 2020-02-22 15:28 | EKG ---
[place] [address] ELECTROCARDIOGRAM REPORT Name: CLARI MARQUEZ Room: [address] M.R.#: [id number] Admission: 02/21/20 Attend Phys: Clau Schmidt Discharge: 02/22/20 Date of : 47 Date of Service: 02/22/20 0641 Report #: [id number] THIS REPORT FOR: //name// [facility] Test Date: 2020-02-22 Test Time: 06:41:20 Pat Name: CLARI MARQUEZ Department: Room: [facility] Gender: M Buckle Assembler: [email or web address] : 1945 Requested By: Juan Carlos Finch Order Number: [id number] Tanner MD: Jovany Espinal Measurements Intervals [place] Rate: 68 P: 57 HI: 193 QRS: 21 QRSD: 91 T: 62 QT: 434 QTc: 462 Interpretive Statements Sinus rhythm Baseline wander in lead(s) V1,V2 Compared to ECG 02/21/2020 13:51:12 No significant changes Electronically Signed On 02-22-2020 15:28:15 CDT by Jovany Espinal [email or web address] <ELECTRONICALLY SIGNED> By: Jovany Espinal MD, FACC 02/22/20 1528 0641 0641 Jovany Espinal MD, FACC /EPI
--- NOTE | 2020-02-28 09:19 | D ---
[address] [address] DISCHARGE SUMMARY Name: CLARI MARQUEZ Room: [address] [place] Ibarra#: [id number] Admission: 02/21/20 Attend Phys: Juan Carlos Finch MD, Discharge: 02/22/20 Date of : 46 Report #: [id number] THIS REPORT FOR: //name// cc: Janeth Kimbrough MD, Cora A. MD ~ THIS REPORT FOR: //name// CC: Janeth Finch FINAL DISCHARGE DIAGNOSES: 1. Unstable angina. 2. Status post prior coronary artery bypass grafting. 3. Status post percutaneous coronary intervention to the proximal and mid left anterior descending on 02/21/2020. 4. Hypertension. 5. Hyperlipidemia. PROCEDURES: 02/21/2020 -- left heart catheterization, left ventriculography, selective coronary arteriography, aortocoronary saphenous vein bypass graft study, PHELPS graft study, and percutaneous coronary intervention of the LAD with atherectomy and stenting of the proximal and mid LAD. The patient is an active 75-year-old male with complex coronary artery disease, status post multiple prior PCIs in approximately 1 year status post 2-vessel bypass with PHELPS graft placed to the LAD and vein graft to the right coronary artery. He had done well until the last several weeks when he noted recrudescence of dyspnea and some chest discomfort on exertion compatible with angina following a pattern of increased frequency and severity. There is underlying hypertension and hyperlipidemia. In this context, I performed recatheterization on 02/21/2020. That study revealed tandem 90% proximal and 75% mid LAD stenosis with a patent PHELPS graft to the very distal LAD with good antegrade filling and modest retrograde filling noted. There was a widely patent vein graft to the distal right coronary artery with good filling throughout the right coronary system. Given this data with suboptimal filling of the proximal and mid LAD from the apical PHELPS graft, I performed percutaneous coronary intervention on the proximal and mid LAD with atherectomy/atherectomy and stenting of the proximal and mid LAD with one drug-eluting stent placed in the proximal LAD, 2.75 x 18 and 2 drug-eluting stents in the mid LAD, 2.5 x 12 and 2.5 x 8, all [place] drug-eluting stents at the aforementioned sites. He did well post-procedurally. Troponin haylee inconsequentially to 0.20. Additional lab revealed sodium 138, potassium 3.5, BUN 25, creatinine 1.3, glucose 121. Hemoglobin 13.6, white blood cell count 7600 with 130,000 platelets. Cholesterol 146, HDL 61, LDL 73, [place] [address] DISCHARGE SUMMARY Name: CLARI MARQUEZ BORA Room: [address] [place] Ibarra#: [id number] Admission: 02/21/20 Attend Phys: Juan Carlos Finch MD, Discharge: 02/22/20 Date of : 47 Report #: [id number] triglycerides 64. He ambulated in the hallways without difficulty with good hemostasis at the femoral site of catheterization. DISCHARGE MEDICATIONS: He was discharged to home on the following medications: Finasteride 5 mg daily, terbinafine 250 mg daily, glucosamine with magnesium 1.5 mg b.i.d., aspirin 162 mg b.i.d., tamsulosin 0.4 mg daily, simvastatin 80 mg daily, triamterene/hydrochlorothiazide 37.5/25 b.i.d., ibuprofen 200 mg t.i.d. p.r.n., p.r.n. sublingual nitroglycerin, Keflex 500 mg daily, colchicine 0.6 mg daily, and isosorbide mononitrate 30 mg daily. I will plan to see him in followup on 03/21/2020 at 10:40. Therefore, the patient is discharged to home in stable condition on the aforementioned medications with followup as described above. <ELECTRONICALLY SIGNED> By: Juan Carlos Finch MD, [facility] 02/28/20 0919 0949 [id number] Finch MD, [facility] /nt
== END 2020-02-22 10:50 | disposition home or self-care (01) ==
LOC: M.CL 09:15 → M.TBA-CV 12:48 → M.2W 17:00
PROVIDERS: ADMIT Internal Medicine; ATTEND Internal Medicine
DX: I25.119 Atherosclerotic heart disease of native coronary artery with unspecified angina pectoris (principal); E78.5 Hyperlipidemia, unspecified; I10 Essential (primary) hypertension; Z79.82 Long term (current) use of aspirin; Z79.899 Other long term (current) drug therapy; Z20.828 Contact with and (suspected) exposure to other viral communicable diseases

== ENCOUNTER → 2020-03-17 | Outpatient (CLI) | payer MEDICARE ==
[~2020-03-17] MED LIST changes: +IBUPROFEN200 M1 PO; +ISOSORBIDE MONO30 M1 PO; +KEFLEX500 M2 PO; +MITIGARE0.6 MG PO; +NITROSTAT0.4 M1 PO
--- NOTE | 2020-03-17 17:56 | CARDNUC ---
[place] [address] CARDIAC NUCLEAR IMAGING REPORT Name: CLARI MARQUEZ Room: [facility]#: [id number] Admission: 03/17/20 Attend Phys: Clau Schmidt Discharge: Date of : 47 Date of Service: 03/17/20 1756 Report #: [id number] THIS REPORT FOR: cc: Janeth Kimbrough MD, Cora A. MD Liston, Michael J. MD [facility] ~ APPROVED REPORT Imaging Protocol: Stress Tc-99m/Rest Tc-99m 1 day Study performed: 03/17/2020 10:51:37 Indication: CAD s/p CABG, Chest pain Patient Location: Out-Patient Stress Tech: Kathy Gomez Stress Nurse: DENISE Meyers Tech:XANDER Rockwell Ht: 5 ft 8 in Wt: 189 lbs BSA: 1.99 m2 HR: 64 bpm BP: 128/75 mmHg BMI: 28.73 Medical History Medical History: CAD s/p CABG, CAD s/p stent, HTN, Hyperlipidemia, PVD Medications: Aspirin, simvastatin, Dyazide, Effient, isosorbide, Nitrostat Allergies: Lisinopril, tape Cardiac Risk Factors: Hyperlipidemia, hypertension, peripheral vascular disease, former tobacco use, age greater than 55 Previous Cardiac Procedures: CABG, PCI Meds Held (24 hrs): Nitroglycerin Resting Data Rest SPECT myocardial perfusion imaging was performed in supine position 30 minutes following the intravenous injection of 9.8 mCi of Tc-99m Sestamibi. Time of rest injection: 09:10 The images were gated to evaluate regional wall motion and calculate left ventricular ejection fraction. Administration Route: IV Administration Site: Right AC Pharmacologic Stress Pharmacologic stress test was performed by injecting Regadenoson 0.4 [place] [address] CARDIAC NUCLEAR IMAGING REPORT Name: CLARI MARQUEZ Room: [facility]#: [id number] Admission: 03/17/20 Attend Phys: Clau Schmidt Discharge: Date of : 47 Date of Service: 03/17/20 1756 Report #: [id number] mg IV push over 10-15 seconds immediately followed by the intravenous injection of 32.8 mCi of Tc-99m Sestamibi. Time of stress injection: 11:00 Administration Route: IV Administration Site: Right AC Heart Rate at time of stress injection: 100 bpm. Gated Stress SPECT was performed 45 minutes after stress injection. The images were gated to evaluate regional wall motion and calculate left ventricular ejection fraction. Prone imaging was performed. Stress Test Details Stress Test: Pharmacologic stress testing performed using 0.4 mg of regadenoson per 5 mL given IV over 10 seconds. Reason for pharmacologic stress test: physical limitation. HR Max Heart Rate (APMHR): 146 bpm Resting HR: 64 bpm Target HR (85% APMHR): 124 bpm Max HR Achieved: 100 bpm % of APMHR: 68 Recovery HR: 85 bpm BP Resting BP: 128/75 mmHg Max BP: 130/66 mmHg Recovery BP: 121/73 mmHg ECG Resting ECG: Sinus Rhythm Stress ECG: Sinus Tachycardia ST Change: None Arrhythmia: None Recovery ECG: Sinus Rhythm Recovery ST Change: None Recovery Arrhythmia: None Clinical Reason for Termination: Completed protocol The patient tolerated Lexiscan infusion without significant cardiac symptoms. Stress ECG Conclusion The baseline twelve-lead EKG shows sinus rhythm without significant ST segment or T wave abnormality. EKGs obtained during and post Lexiscan infusion show sinus rhythm and sinus tachycardia with no significant ST segment or T wave changes when [place] [address] CARDIAC NUCLEAR IMAGING REPORT Name: CLARI MARQUEZ Room: [facility]#: [id number] Admission: 03/17/20 Attend Phys: Clau Schmidt Discharge: Date of : 47 Date of Service: 03/17/20 1756 Report #: [id number] There were no significant stress-induced arrhythmias. Study Quality Study: Good Artifact: No artifact Study Data At rest, the left ventricular ejection fraction was 66%.. Post stress, the left ventricular ejection was 66%.. TID = 0.87. Perfusion Perfusion images show uniform uptake of the radioisotope throughout the myocardium. There were no significant defects at rest or stress. Wall Motion There is a septal wall motion abnormality consistent with previous bypass procedure. Global LV systolic function is preserved. Paradoxical septal motion due to the postoperative state. Nuclear Conclusion ECG Findings: negative for ischemia Clinical Findings: negative for ischemia Nuclear Findings: negative for ischemia Exercise Capacity: not assessed Left Ventricular Function: Preserved Risk Study: low Perfusion study show no defect to suggest infarct or ischemia. Left ventricular systolic function appears well-preserved on gated studies. This is a low risk study. <Conclusion> The baseline twelve-lead EKG shows sinus rhythm without significant ST segment or T wave abnormality. EKGs obtained during and post Lexiscan infusion show sinus rhythm and sinus tachycardia with no significant ST segment or T wave changes when compared to baseline. There were no significant stress-induced arrhythmias. <ELECTRONICALLY SIGNED> By: Jovany Espinal MD, FACC 03/17/201755 55 55 Jovany Espinal MD, FACC /INF
== END ==
LOC: M.NUC 03-16 13:16
PROVIDERS: ATTEND Internal Medicine
DX: I20.8 Other forms of angina pectoris (principal); R00.0 Tachycardia, unspecified